=== PATIENT | female | born 1930 | race Caucasian/White ===

== ENCOUNTER 2017-10-21 15:24 | Inpatient (IN) | payer OTHER ==
[~2017-10-21] VITALS: Ht 170.2 cm; Wt 68.5 kg
--- NOTE | 2017-10-21 15:24 | NUR ---
PT TAKEN BY [facility] FROM [facility]ARKING LOT TO ER BED 10
[2017-10-21 15:33] VITALS: BP 206/77
--- NOTE | 2017-10-21 15:33 | NUR ---
87 YO FEMALE BIB PRIVATE AUTO ASSISTED TO [facility] IN PARKING LOT NO PULSE AGONAL RESPIRATIONS TAKEN TO BED 10 MD AT BEDSIDE PATIENT INTUBATED ON ARRIVAL. SKIN IS PALE AND CLAMMY UPON ARRIVAL.HOOKED TO BEDSIDE MONITOR SHOWS HR 153,BP 206/77.
[2017-10-21] MEDS ORDERED: MORPHINE SULFATE 2 MG/ML SYR IVP ONE (15:55)
[2017-10-21] MEDS ORDERED: LORazepam 2 MG/ML VIAL IVP ONE (15:55)
--- NOTE | 2017-10-21 15:58 | NUR ---
PT IS MORE AWAKE AT THIS TIME, TRIED TO PULL OUT TUBES, NOTIFIED MD AND ORIENTED PT.
--- NOTE | 2017-10-21 16:00 | NUR ---
CALVIN CATH INSERTED, CLEAR YELLOW URINE NOTED.
[2017-10-21] MEDS ORDERED: PROPOFOL 200 MG/20 ML VIAL IV ONE (16:10)
--- NOTE | 2017-10-21 16:10 | NUR ---
NOTIFIED MD BEDSIDE MONITOR SHOWS ABNORMAL EKG.
[2017-10-21] MEDS ORDERED: NACL 0.9% 1,000 ML IV ONE ×2 (16:20→17:15)
[2017-10-21] MEDS ORDERED: PROPOFOL 1000 MG/100 ML PREMIX 0 ML IV ONE (16:23)
--- NOTE | 2017-10-21 16:28 | NUR ---
1L NS BOLUS STARED.
--- NOTE | 2017-10-21 17:00 | NUR ---
PT'S DAUGHTER AT BEDSIDE HAD CONVERSATION WITH MD.
--- NOTE | 2017-10-21 17:11 | NUR ---
ABG RESULTS GIVEN TO . PHYSICIAN REQUESTS NEW VENT SETTINGS AC20 ,VT 450, PEEP 5 AND FIO2 40%. VENT ALARMS REMAIN ON AND FUNCTIONING. ETT REMAINS SECURE WITH A PATENT AIRWAY.
[2017-10-21] MEDS ORDERED: PIPERACILLIN/TAZOBACTAM 3.375 GM in DEXTROSE 5% 50 ML IV ONE (17:15)
[2017-10-21] MEDS ORDERED: DEXAMETHASONE 10 MG/ML VIAL IVP ONE (17:15)
[2017-10-21] MEDS ORDERED: SODIUM BICARBONATE 8.4% PFS 50 MEQ/50 ML SYR IVP ONE (17:15)
[2017-10-21 17:20] LABS: ALBUMIN 3.6 g/dL (3.4-5.0); ANION GAP 20.2 (8-16); ASPARTATE AMINOTRANSFERASE 164 U/L (15-37); CARBON DIOXIDE 24.7 mmol/L (21-32); CHLORIDE 96 mmol/L (98-107); CREATININE 1.8 mg/dL (0.6-1.3); GLUCOSE 208 mg/dL (74-106); POTASSIUM 4.9 mmol/L (3.5-5.1); SODIUM SERUM 136 mmol/L (136-145); TOTAL BILIRUBIN 0.4 mg/dL (0.0-1.0); UREA NITROGEN, BLOOD 25 mg/dL (7-18)
[2017-10-21 17:39] LABS: MAGNESIUM 2.1 mg/dL (1.8-2.4)
[2017-10-21 17:42] LABS: ACETONE, SERUM NEGATIVE (NEGATIVE)
[2017-10-21 17:45] LABS: HEMATOCRIT 42.8 % (36-48); HEMOGLOBIN 13.3 g/dL (12.0-16.0); MEAN CORPUSCULAR HEMOGLOBIN 28 pg (27-31); MEAN CORPUSCULAR HGB CONC 31 g/dL (33-37); MEAN CORPUSCULAR VOLUME 89.9 fL (80-94); PLATELET COUNT (AUTO) 386 K/uL (140-450); RED BLOOD CELL COUNT(AUTO) 4.76 MIL/uL (4.20-5.40); RED CELL DISTRIBUTION WIDTH 13.7 % (11.6-13.7)
[2017-10-21] MEDS ORDERED: PIPERACILLIN/TAZOBACTAM 3.375 GM VIAL IV ONE ×2 (17:48→20:56)
[2017-10-21] MEDS ORDERED: FLUT1POW3 IH (17:53)
[2017-10-21] MEDS ORDERED: GABA100C PO (17:54)
[2017-10-21] MEDS ORDERED: OXYC20TA PO (17:54)
[2017-10-21] MEDS ORDERED: UMEC62.5 IH (17:54)
[2017-10-21] MEDS ORDERED: POTA8TER12 PO (17:56)
[2017-10-21] MEDS ORDERED: FURO-570 PO (17:56)
[2017-10-21] MEDS ORDERED: METO25TA PO (17:56)
[2017-10-21] MEDS ORDERED: ATOR40TA PO (17:56)
[2017-10-21 17:58] LABS: EOSINOPHILS % (MANUAL) 1 % (0-4); LYMPHOCYTES % (MANUAL) 10 % (20-46); MONOCYTES % (MANUAL) 4 % (5-12)
--- NOTE | 2017-10-21 18:00 | NUR ---
PT IS MORE AWAKE, REORIENTED PT. PT'S DAUGHTER AT BEDSIDE.
[2017-10-21] MEDS ORDERED: ASPI81CT89 PO (18:07)
[2017-10-21] MEDS ORDERED: VIT1CAPS9 PO (18:07)
[2017-10-21] MEDS ORDERED: BEN50 PO (18:07)
[2017-10-21] MEDS ORDERED: DOCU-299 PO (18:07)
[2017-10-21] MEDS ORDERED: FLAX10002 PO (18:07)
[2017-10-21] MEDS ORDERED: VITB12 PO (18:07)
[2017-10-21] MEDS ORDERED: PROPOFOL 1000 MG/100 ML PREMIX 100 ML IV PRN (18:35)
[2017-10-21] MEDS ORDERED: NACL 0.9% 1,000 ML IV SCH (18:39)
[2017-10-21] MEDS ORDERED: ONDANSETRON 4 MG/2 ML VIAL IM/IVP PRN (18:40)
[2017-10-21] MEDS ORDERED: DOCUSATE SODIUM 100 MG GELCAP PO PRN (18:40)
[2017-10-21] MEDS ORDERED: ACETAMINOPHEN 325 MG TAB PO PRN (18:40)
[2017-10-21] MEDS ORDERED: NITROGLYCERIN 0.4 MG TAB SL ONE (19:00)
--- NOTE | 2017-10-21 19:00 | NUR ---
TRANSFERRED PT TO ICU BED5 VIA GURNEY ACCOMAPNIED WITH RT, RN AND TECH. BEDSIDE REPORT GIVEN TO ROCCO OCAMPO, PT IS MORE AWAKE, ALERT, ABLE TO FOLLWO SIMPLE COMMANDS. BP 110/83, HR 78, O2 SATS 94 % UPON ARRIVAL TO ICU.
--- NOTE | 2017-10-21 19:00 | NUR ---
PT BIBG FROM ER. S/P CARDIAC ARREST. AFEBRILE. AAO X 3. RESPONDS TO VERBAL AND TACTILE STIMULI. ETT TO VENT FIO2 40 VT 450 RATE 20 FLOW 50 PEEP 5. LUNG SOUNDS DIMINISHED BILATERALLY. SR ON MONITOR. NO EDEMA NOTED. IV SITE L HAND 18G. BOWEL SOUNDS HYPOACTIVE. 1 SMALL BM AT THIS TIME. F/C PATENT. REDNESS NOTED SACRAL COCCYX. NO SIGNS OF ACUTE DISTRESS AT THIS TIME. SIDE RAILS UP X4. BED IN LOWEST POSITION. WILL CONTINUE TO MONITOR.
--- NOTE | 2017-10-21 19:20 | NUR ---
late entry : PT started 0.9 NS at 1600 and ended at 1705. Zosyn started at 1745 and ended at 1815. the second bag of 0.9 NS started at 1720 @ 100 mls/hr and it was still transfusing after PT transferred to ICU, about 800 mls fluid left in the bag.
[2017-10-21 19:25] VITALS: BP 118/63
[2017-10-21 20:01] VITALS: BP 110/83
[2017-10-21] MEDS ORDERED: HEPARIN PER PHARMACY MC PRN (20:20)
[2017-10-21] MEDS ORDERED: hePARIN / DEXT 5% PREMIX 250 ML IV SCH (20:20)
[2017-10-21 20:24] LABS: APPEARANCE,URINE SL CLOUDY (CLEAR); BILIRUBIN,URINE NEGATIVE (NEGATIVE); BLOOD, URINE 1+ (NEGATIVE); COLOR,URINE YELLOW (YELLOW); LEUKOCYTE ESTERASE ,URINE TRACE (NEGATIVE); NITRITE, URINE NEGATIVE (NEGATIVE); UGLUCOSE NEGATIVE (NEGATIVE)
--- NOTE | 2017-10-21 20:31 | NUR ---
LARGE BM AT THIS TIME. STOOL SAMPLE COLLECTED AND SENT FOR OCCULT BLOOD.
[2017-10-21] MEDS ORDERED: METOPROLOL SUCCINATE 50 MG TABER PO SCH (21:00)
[2017-10-21] MEDS: CARVEDILOL 3.125 MG TAB PO SCH (21:00)
--- NOTE | 2017-10-21 21:24 | NUR ---
ULTRASOUND AT BEDSIDE AT THIS TIME
[2017-10-21 21:25] VITALS: BP 102/68
[2017-10-21 21:47] LABS: PROTHROMBIN TIME 9.9 secs (10.8-13.4)
[2017-10-21 21:54] LABS: RBC,URINE 0-5 (RARE) /HPF (0-5)
[2017-10-21 21:55] LABS: FINE GRANULAR CASTS,URINE 0-10 /LPF (None Seen)
[2017-10-21 22:00] VITALS: BP 135/82
[2017-10-21] MEDS ORDERED: LORazepam 2 MG/ML VIAL IVP SCH (22:00)
[2017-10-21] MEDS ORDERED: HYDROmorphone 1 MG/ML AMP IVP SCH (22:00)
[2017-10-21] MEDS: DEXT 5% / NACL 0.45% 1,000 ML IV SCH (22:05)
--- NOTE | 2017-10-21 22:15 | NUR ---
INSERTED NGT TO L NARES
[2017-10-21] MEDS ORDERED: DEXTROSE 50% 50 ML SYR IVP PRN (22:25)
[2017-10-21] MEDS ORDERED: DOXYCYCLINE 100 MG in DEXTROSE 5% 100 ML IV SCH (23:00)
[2017-10-21] MEDS ORDERED: MIDAZOLAM 2 MG/2 ML VIAL IV SCH (23:00)
[2017-10-21 23:25] VITALS: BP 110/68
[2017-10-22] VITALS (91 sets, daily range): BP systolic 98–173; BP diastolic 38–100
[2017-10-22] MEDS ORDERED: methylPREDNISolone SS 40 MG in WATER STERILE 1 ML IV SCH ×2
--- NOTE | 2017-10-22 00:12 | NUR ---
LAB AT BEDSIDE FOR BLOOD DRAW
[2017-10-22] MEDS: methylPREDNISolone SS 40 MG/ML VIAL IVP SCH ×3 (00:26→09:56)
[2017-10-22] MEDS: PIPER/TAZO 2.25GM/D5W PREMIX 50 ML IV SCH ×5 (00:26→23:13)
[2017-10-22 00:34] LABS: CHOL/HDL RATIO 1.8 (1-4.5); FREE T4 (FREE THYROXINE) 1.21 ng/dL (0.76-1.46); PHOSPHORUS 3.3 mg/dL (2.5-4.9); THYROID STIMULATING HORMONE 0.29 uIU/mL (0.34-3.74)
--- NOTE | 2017-10-22 00:40 | NUR ---
CRITICAL LAB VALUE TROPONIN 0.268 REPORTED TO
[2017-10-22] MEDS ORDERED: GABAPENTIN 100 MG CAP PO PRN (00:50)
--- NOTE | 2017-10-22 02:00 | NUR ---
IV INSERTED TO LEFT FA. PT ON PROPOFOL 5MCG. WILL CONTINUE TO MONITOR.
[2017-10-22] MEDS: PROPOFOL 1000 MG/100 ML PREMIX 100 ML IV PRN ×4 (02:13→17:59)
[2017-10-22] MEDS: ZOLPIDEM 5 MG TAB PO PRN (02:18)
--- NOTE | 2017-10-22 03:00 | NUR ---
PT UNABLE TO GO TO CT SCAN D/T RESTLESSNESS. PROPOFOL INCREASED TO 30 MCG/KG/MIN, WILL CONTINUE TO MONITOR.
--- NOTE | 2017-10-22 03:55 | NUR ---
ATIVAN GIVEN 1MG FOR RESTLESSNESS
[2017-10-22] MEDS ORDERED: LORazepam 2 MG/ML VIAL IVP SCH (04:00)
[2017-10-22] MEDS ORDERED: MIDAZOLAM MDV 50 MG in NACL 0.9% 40 ML IV PRN (05:05)
--- NOTE | 2017-10-22 05:20 | NUR ---
CT SCAN REFUSED BY US D/T RESTLESSNESS. DR. BARTLETT MADE AWARE. PROPOFOL INCREASED TO 50MCG/KG/MIN
[2017-10-22 06:32] LABS: BASOPHILS % (AUTO) 0.1 % (0.0-2.0); HEMOGLOBIN 10.8 g/dL (12.0-16.0); LYMPHOCYTES # (AUTO) 0.5 K/uL (2.5-16.5); LYMPHOCYTES % (AUTO) 2.9 % (20.5-51.1); MEAN CORPUSCULAR HEMOGLOBIN 28 pg (27-31); MEAN CORPUSCULAR HGB CONC 32 g/dL (33-37); MEAN CORPUSCULAR VOLUME 88.4 fL (80-94); MONOCYTES # (AUTO) 0.2 K/uL (0.8-1.0); MONOCYTES % (AUTO) 1.3 % (1.7-9.3); NEUTROPHILS # (AUTO) 16.7 K/uL (1.8-7.7); NEUTROPHILS % (AUTO) 95.7 % (42.2-75.2); PLATELET COUNT (AUTO) 260 K/uL (140-450); RED BLOOD CELL COUNT(AUTO) 3.85 MIL/uL (4.20-5.40); WHITE BLOOD COUNT (AUTO) 17.5 K/uL (4.8-10.8)
[2017-10-22] MEDS: BLOOD GLUCOSE MONITORING 1 DEV DEV FS SCH ×4 (06:48→20:09)
[2017-10-22 06:49] LABS: ANION GAP 12.7 (8-16); CARBON DIOXIDE 30.6 mmol/L (21-32); CHLORIDE 103 mmol/L (98-107); CREATININE 1.3 mg/dL (0.6-1.3); GLUCOSE 183 mg/dL (74-106); POTASSIUM 4.3 mmol/L (3.5-5.1); SODIUM SERUM 142 mmol/L (136-145); UREA NITROGEN, BLOOD 25 mg/dL (7-18)
--- NOTE | 2017-10-22 07:10 | NUR ---
ENDORSED CARE TO INCOMING SHIFT. NO SIGNS OF ACUTE DISTRESS AT THIS TIME. PT IN STABLE CONDITION. BED IN LOWEST POSITION.
--- NOTE | 2017-10-22 07:30 | NUR ---
REPORT RECEIVED FROM NIGHT NURSE. PT IS SEDATED. AROUSABLE TO TOUCH. PEERL, AFEBRILE. FLACC 0. SINUS RHYTHM ON MONITOR. PT IS ETT TO VENT WITH SETTINGS: AC 18, FIO2 80%, VT 450, PEEP 5. LUNGS SOUND CLEAR, DIMINISHED LOWER LOBES. BREATHING EVEN AND UNLABORED. NO SOB NOTED AT THIS TIME. NGT IN PLACE TO LEFT NARE, PLACEMENT CONFIRMED. ABD SOFT, NONTENDER, NONDISTENDED WITH ACTIVE BOWEL SOUNDS. PT ISNPO EXCEPT MEDS AT THIS TIME. PERIPHERAL IVS G20 TO LEFT FOREARM AND G18 TO LEFT HAND ASYMPTOMATIC, PATENT AND INTACT, PT IS ON PROPOFOL DRIP AT 50 MCG/KG/MIN AND IV FLUID D51/2NS AT 70 ML/HR. CALVIN CATH IN PLACE DRAINING URINE TO GRAVITY DRAINAGE BAG. SKIN IS DRY AND WARM TO TOUCH. NO SIGNS OF ACUTE DISTRESS NOTED AT THIS TIME. BED IN LOWEST POSITION AND CALL LIGHT WITHIN REACH. WILL CONTINUE TO MONITOR.
--- NOTE | 2017-10-22 07:30 | NUR ---
RECEIVED REPORT FROM NIGHT NURSE. PT IS SEDATED. AROUSABLE TO TACTILE STIMULI. PEERL, FLACC 0, AFEBRILE. NORMAL SINUS RHYTHM ON MONITOR. PT IS ETT TO VENT WITH SETTINGS: AC 18, FIO2 40%, VT 450, PEEP 5. BREATHING EVEN AND UNLABORED. NO SIGNS OF SOB NOTED. LUNGS SOUND CLEAR, DIMINISHED LOWER LOBES BILATERALLY. ABD SOFT, NONDISTENDED, NONTENDER W/ ACTIVE BOWEL SOUNDS. NGT IN PLACE TO LEFT NARE, PLACEMENT CONFIRMED. PERIPHERAL IVS G20 TO LEFT FOREARM AND G18 TO LEFT HAND PATENT AND INTACT, PT IS ON PROPOFOL DRIP AT 50 MCG/KG/MIN AND IV FLUID D51/2NS AT 70 ML/HR. CALVIN CATH IN PLACE DRAINING CLEAR URINE. SKIN IS INTACT, DIAPHORETIC AND WARM TO TOUCH. NO SIGNS OF ACUTE DISTRESS NOTED AT THIS TIME. HOB AT 30 DEGREES. BED IN LOWEST POSITION, CALL LIGHT WITHIN REACH. WILL CONTINUE TO MONITOR.
--- NOTE | 2017-10-22 07:34 | NUR ---
RECEIVED INTUBATED PT WITH A 7.5 ETT SECURED @21 TEETH/GUMS ON VENT. SETTINGS AC 20 VT 450, PEEP 5 AND FIO2 40%. PT SUCTIONED OBTAINED SMALL AMOUNT OF BLOOD TINGED SECRETIONS, AIRWAY IS PATENT AND ETT IS SECURE. PT IS TACHYPNEIC AND SLIGHTLY RESTLESS AT THIS TIME. VENT ALARMS ARE ON AND FUNCTIONING. WILL CONTINUE TO MONITOR.
--- NOTE | 2017-10-22 08:30 | NUR ---
DR. SILVER IN TO SEE AND EXAMINE PT. WILL FOLLOW UP ON ORDERS.
[2017-10-22] MEDS ORDERED: DOXYCYCLINE 100 MG in DEXTROSE 5% 100 ML IV SCH (09:00)
[2017-10-22] MEDS ORDERED: ATORVASTATIN 20 MG TAB PO SCH (09:00)
--- NOTE | 2017-10-22 09:45 | NUR ---
BACK FROM RADIOLOGY AFTER CT OF HEAD AND CHEST TAKEN. PT TOLERATED WELL. VSS.
--- NOTE | 2017-10-22 09:45 | NUR ---
PT MANUALLY VENTILATED BACK TO ICU FROM CT WITHOUT INCIDENT. PT PLACED BACK ON VENT WITH DOCUMENTED VENT SETTINGS. PT REMAINS TACHYPNEIC AT THIS TIME. SPO2 97%. VENT ALARMS ON AND FUNCTIONING. WILL CONTINUE TO MONITOR.
[2017-10-22] MEDS: LACTOBACILLUS RHAMNOSUS GG 1 EACH CAP PO SCH (09:56)
[2017-10-22] MEDS: ASPIRIN 81 MG TAB.CHEW PO SCH (09:56)
[2017-10-22] MEDS: LISINOPRIL 5 MG TAB PO SCH (09:56)
[2017-10-22] MEDS: CARVEDILOL 3.125 MG TAB PO SCH ×2 (09:57→20:09)
[2017-10-22] MEDS: FUROSEMIDE 40 MG TAB PO SCH (09:58)
[2017-10-22] MEDS: ATORVASTATIN 20 MG TAB PO SCH (09:58)
[2017-10-22] MEDS: DOXYCYCLINE 100 MG in DEXTROSE 5% 100 ML IV SCH ×2 (10:01→20:09)
--- NOTE | 2017-10-22 10:55 | NUR ---
CALLED RADIOLOGY TO FOLLOW UP WITH VQ SCAN. PER EM FROM RADIOLOGY, THEY ARE TRYING TO REACH A CLIENT COORDINATOR. WILL FOLLOW UP AGAIN.
--- NOTE | 2017-10-22 11:00 | NUR ---
RECEIVED A CALL FROM PHARMACY AND SPOKE WITH DR. MOELLER REGARDING VERIFICATION OF HEPARIN AND GABAPENTIN ORDERS. WILL FOLLOW UP.
--- NOTE | 2017-10-22 11:10 | NUR ---
PT'S DAUGHTER ALEYDA AT BEDSIDE AND UPDATES GIVEN ON PT'S CONDITION.
--- NOTE | 2017-10-22 11:29 | NUR ---
RECEIVED A CALL FROM PT'S SON, LILIYA. UPDATES GIVEN ON PT'S CONDITION.
--- NOTE | 2017-10-22 11:45 | NUR ---
ECHOCARDIOGRAM BEING DONE AT BEDSIDE. VITAL SIGNS STABLE.
--- NOTE | 2017-10-22 11:56 | NUR ---
VENT CHECK COMPLETED. MORTGAGE PROFESSIONAL BEDSIDE COMPLETING PROCEDURE. DAUGHTER ALSO BEDSIDE. WILL CONTINUE TO MONITOR.
[2017-10-22] MEDS: DEXT 5% / NACL 0.45% 1,000 ML IV SCH ×2 (12:23→17:13)
--- NOTE | 2017-10-22 12:30 | NUR ---
ECHOCARDIOGRAM COMPLETED
--- NOTE | 2017-10-22 12:36 | NUR ---
ECHOCARDIOGRAM COMPLETED. PT TOLERATED WELL.
--- NOTE | 2017-10-22 13:30 | NUR ---
VQ SCAN BEING DONE AT BEDSIDE. NO ACUTE DISTRESS NOTED AT THIS TIME. WILL CONTINUE TO MONITOR.
--- NOTE | 2017-10-22 13:57 | NUR ---
RESIDENT PHYSICIAN DR. MEDELLIN IN TO SEE PT. WILL FOLLOW UP ON ORDERS.
--- NOTE | 2017-10-22 14:30 | NUR ---
VQ SCAN DONE. NO SIGNS OF ACUTE DISTRESS NOTED AT THIS TIME. VITAL SIGNS STABLE.
[2017-10-22] MEDS ORDERED: hePARIN / DEXT 5% PREMIX 250 ML IV SCH ×3 (14:35→21:20)
[2017-10-22] MEDS ORDERED: HEPARIN PER PHARMACY MC PRN ×2 (14:35)
--- NOTE | 2017-10-22 14:59 | NUR ---
PHARMACIST CALLED TO VERIFY HEPARIN DRIP ORDER DUE TO DECREASE IN H&H AND PLATELET LEVELS IN ONE DAY. RESIDENT PHYSICIAN DR. MOELLER MADE AWARE. WILL FOLLOW UP WITH NEW ORDERS.
--- NOTE | 2017-10-22 15:23 | NUR ---
DR. GELLER Y. IN TO SEE AND EXAMINE PT, AND MADE AWARE OF DECREASE IN H&H AND PLATELET VALUES AND VERIFIED HEPARIN ORDER. PER DR. GELLER, PT IS OK TO RECEIVE HEPARIN. WILL FOLLOW UP.
--- NOTE | 2017-10-22 15:45 | NUR ---
PT TEMP 98.9 WHEN RECHECKED AFTER TYLENOL AND ICE BATH. WILL CONTINUE TO MONITOR. Addendum: 10/22/17 at 1556 by Kylie Aj RN WRONG PATIENT CHARTING.
--- NOTE | 2017-10-22 15:45 | NUR ---
PT PLACED ON CPAP 5 PS 10 FIO2 40%. FAMILY IS BEDSIDE. NURSE MOORE IS AWARE.
--- NOTE | 2017-10-22 15:55 | NUR ---
PT'S DAUGHTER, ALEYDA AND SON, ALBERTO WANT TO KEEP PT'S RING ON HER FINGER. EXPLAINED HOSPITAL POLICY FOR PERSONAL BELONGINGS AND BOTH SON AND DAUGHTER VERBALIZED UNDERSTANDING.
--- NOTE | 2017-10-22 16:23 | NUR ---
PT RETURNED TO AC MODE FROM CPAP TRIAL DUE TO INCREASED WOB AND TACHYPNEA. PT DOES NOT OPEN HER EYE AND IS NOT ABLE TO FOLLOW SIMPLE COMMANDS. NURSE MOORE IS BEDSIDE AND AWARE.
--- NOTE | 2017-10-22 16:55 | NUR ---
PT , ROBERT HUGHES, CALLED FOR UPDATE. EXPLAINED THAT PATIENT NEEDS TO BE TRANSFERRED [facility] CATH PLACEMENT. SHE ALSO CONSENTED FOR EGD AND COLONOSCOPY. INFORMED CONSENT RECEIVED VIA TWO NURSES MYSELF AND TOM. WILL FOLLOW UP WITH WHEN PT HAS TRANSFER PLAN. Addendum: 10/22/17 at 1810 by Kylie jA RN WRONG PATIENT
--- NOTE | 2017-10-22 17:19 | NUR ---
PT REMAINS ON VENT SETTINGS AC 20, VT 450, PEEP 5 AND FIO2 40%. PT IS SLIGHTLY IRRITABLE MOVING HANDS AROUND. VENT ALARMS REMAIN ON AND FUNCTIONING. ETT REMAINS SECURE WITH A PATENT AIRWAY.
--- NOTE | 2017-10-22 17:45 | NUR ---
BED BATH GIVEN AND REPOSITIONED PT. TOLERATED WELL. PT WAS ABLE TO OPEN EYES AND FOLLOW SIMPLE COMMANDS.
--- NOTE | 2017-10-22 18:23 | NUR ---
ULTRASOUND FOR LOWER EXTREMITIES COMPLETED. PT TOLERATED WELL.
--- NOTE | 2017-10-22 18:24 | NUR ---
DR. BARTLETT IN TO SEE AND EXAMINE PT. UPDATES GIVEN ON PT'S CONDITION. WILL FOLLOW UP ON ORDERS.
--- NOTE | 2017-10-22 19:15 | NUR ---
RECEIVED REPORT FROM MORNING RN FOR CONTINUITY OF CARE. VS STABLE AT THIS TIME. PT OPENS EYES. ABLE TO MAKE NEEDS KNOWN THROUGH NODDING HER HEAD. ABLE TO FOLLOW SIMPLE COMMAND. RASS -1. PERRL. SINUS ARRHYTHMIA WITH PAC ON MONITOR. PULSES PALPABLE IN ALL EXTREMITIES. ETT TO VENT WITH SETTINGS: AC18, FIO2 40%, TV450 AND PEEP 5. NO SIGNS OF RESPIRATORY DISTRESS NOTED. NGT IN PLACE. NO RESIDUAL NOTED AT THIS TIME. PLACEMENT CHECKED. PT HAS CALVIN CATHETER IN PLACE DRAINING VIRI COLORED URINE. NO BM NOTED THIS TIME. PT HAS PERIPHERAL IV ACCESS ON LEFT AC 22G AND RIGHT HAND 20G. RECEIVED PT ON HEPARIN DRIP AT 910 UNITS/HR, PROPOFOL AT 10MCG, AND D5W 0.45% NS AT 70ML/HR. HOB AT 30 DEGREES. ALL SAFETY PRECAUTIONS ARE IN PLACE. CALL LIGHT WITHIN REACH. WILL CONTINUE TO MONITOR PT.
--- NOTE | 2017-10-22 19:27 | NUR ---
REPORT GIVEN FOR NIGHT NURSE FOR CONTINUITY OF CARE. PT IS IN STABLE CONDITION.
[2017-10-22] MEDS: INSULIN LISPRO SLIDING SCALE 100 UNITS/ML VIAL SUBQ PRN (20:09)
--- NOTE | 2017-10-22 21:05 | NUR ---
PT ATTEMPTING TO SIT UP AND DANGLES HER LEGS OF BED. REORIENT PT AND WILL CONTINUE TO KEEP MONITORING HER. VS STABLE AT THIS TIME. BED AT LOW POSSIBLE POSITION. ALL SAFETY PRECAUTIONS ARE IN PLACE. WILL CONTINUE TO MONITOR PT.
--- NOTE | 2017-10-22 21:18 | NUR ---
SPOKE TO THE PHARMACIST, DANIEL REGARDING HEPARIN DRIP DOSAGE. SHE SAID THAT IF HEPARIN DRIP IS FOR [facility], SHE WILL UPDATE THE HEPARIN DRIP DOSAGE TO ACS PROTOCOL. DR. BARTLETT NOTIFIED, AND SAID OK TO CHANGE HEPARIN DRIP DOSAGE TO [facility] PROTOCOL. WILL CONTINUE TO MONITOR.
--- NOTE | 2017-10-22 23:00 | NUR ---
PT AWAKE AT THIS TIME. VS STABLE. SR ON MONITOR ON MONITOR. ALL SAFETY PRECAUTIONS ARE IN PLACE. WILL CONTINUE TO MONITOR PT.
--- NOTE | 2017-10-22 23:45 | NUR ---
PT ASLEEP AT THIS TIME. ORAL CARE PROVIDED. RASS -1 AT THIS TIME. PT DOES NOT APPEAR TO BE IN ANY SIGNS OF DISTRESS. ALL SAFETY PRECAUTIONS ARE IN PLACE. BED AT LOW POSSIBLE POSITION. WILL CONTINUE TO MONITOR PT.
--- NOTE | 2017-10-22 23:52 | NUR ---
SPOKE WITH DR. BARTLETT REGARDING TROPONIN, ACCORDING TO HER NEXT ONE WILL BE TOMORROW AT 0600.
[2017-10-23] VITALS (103 sets, daily range): BP systolic 119–183; BP diastolic 52–102
--- NOTE | 2017-10-23 00:45 | NUR ---
PT NOTED TO HAVE PVCs. NO SIGNS OF DISTRESS NOTED. DR. BRODERICK NOTIFIED WITH ORDERS MADE. WILL CONTINUE TO MONITOR.
[2017-10-23] MEDS: ENOXAPARIN 30 MG/0.3 ML SYR SUBQ SCH (01:00)
--- NOTE | 2017-10-23 01:11 | NUR ---
DR. BRODERICK NOTIFIED OF EKG RESULT. NO ORDERS MADE. WILL CONTINUE TO MONITOR.
--- NOTE | 2017-10-23 01:48 | NUR ---
VS STABLE AT THIS TIME. PT ASLEEP. NO CHANGE IN CONDITION AT THIS TIME. PT HAS NOT ATTEMPTED TO SIT UP NOR DANGLE FEET OFF BED AT THIS TIME. HOB AT 30 DEGREES. ALL SAFETY PRECAUTIONS ARE IN PLACE. WILL CONTINUE TO MONITOR PT.
[2017-10-23] MEDS: PROPOFOL 1000 MG/100 ML PREMIX 100 ML IV PRN ×3 (01:52→22:55)
--- NOTE | 2017-10-23 03:50 | NUR ---
PT ASLEEP AT THIS TIME. RASS -1 AT THIS TIME. KEPT HOB AT 30 DEGREES. BED AT LOW POSSIBLE POSITION AT THIS TIME. ALL SAFETY PRECAUTIONS ARE IN PLACE. NO CHANGE IN CONDITION AT THIS TIME. CALVIN CATHETER STILL DRAINING VIRI URINE. WILL CONTINUE TO MONITOR PT.
--- NOTE | 2017-10-23 04:59 | NUR ---
MORNING CARE PROVIDED TO PT. NO BM NOTED AT THIS TIME. NO FURTHER SKIN BREAKDOWN NOTED. ORAL CARE AND CALVIN CATHETER CARE PROVIDED. ALL SAFETY PRECAUTIONS ARE IN PLACE. HOB AT 30 DEGREES. WILL CONTINUE TO MONITOR PT.
[2017-10-23] MEDS: PIPER/TAZO 2.25GM/D5W PREMIX 50 ML IV SCH ×3 (05:01→17:01)
[2017-10-23 05:09] LABS: BASOPHILS % (AUTO) 0.4 % (0.0-2.0); EOSINOPHILS % (AUTO) 0.1 % (0.0-4.0); HEMOGLOBIN 10.4 g/dL (12.0-16.0); LYMPHOCYTES % (AUTO) 5.1 % (20.5-51.1); MEAN CORPUSCULAR HEMOGLOBIN 29 pg (27-31); MEAN CORPUSCULAR HGB CONC 32 g/dL (33-37); MEAN CORPUSCULAR VOLUME 87.9 fL (80-94); MONOCYTES % (AUTO) 4.7 % (1.7-9.3); NEUTROPHILS % (AUTO) 89.7 % (42.2-75.2); PLATELET COUNT (AUTO) 225 K/uL (140-450); RED BLOOD CELL COUNT(AUTO) 3.64 MIL/uL (4.20-5.40); RED CELL DISTRIBUTION WIDTH 14.1 % (11.6-13.7)
[2017-10-23 05:10] LABS: BASOPHILS # (AUTO) 0.1 K/uL (0.00-0.22); MONOCYTES # (AUTO) 0.9 K/uL (0.8-1.0); NEUTROPHILS # (AUTO) 17.9 K/uL (1.8-7.7)
[2017-10-23 05:39] LABS: MAGNESIUM 1.7 mg/dL (1.8-2.4); PHOSPHORUS 3.7 mg/dL (2.5-4.9)
[2017-10-23 05:40] LABS: ANION GAP 11.1 (8-16); CARBON DIOXIDE 31.4 mmol/L (21-32); CHLORIDE 102 mmol/L (98-107); CREATININE 1.2 mg/dL (0.6-1.3); GLUCOSE 134 mg/dL (74-106); POTASSIUM 3.5 mmol/L (3.5-5.1); SODIUM SERUM 141 mmol/L (136-145)
--- NOTE | 2017-10-23 06:25 | NUR ---
VS STABLE AT THIS TIME. PT ASLEEP. NO CHANGE IN CONDITION. RECEIVED CRITICAL TROPONIN AND REPORTED TO MD. BED AT LOW POSSIBLE POSITION AT THIS TIME. HOB AT 30 DEGREES. ALL SAFETY PRECAUTIONS IN PLACE. WILL CONTINUE TO MONITOR PT.
[2017-10-23] MEDS: BLOOD GLUCOSE MONITORING 1 DEV DEV FS SCH ×4 (06:28→20:34)
[2017-10-23 06:30] LABS: UREA NITROGEN, BLOOD 22 mg/dL (7-18)
[2017-10-23] MEDS ORDERED: MAG SULF 2000 MG/WATER PREMIX 50 ML IV SCH (07:00)
--- NOTE | 2017-10-23 07:10 | NUR ---
RECEIVED REPORT FROM NOC RN FOR CONTINUITY OF CARE. PATIENT IS AWAKE TO VOICE, ABLE TO FOLLOW SIMPLE COMMAND. SKIN WARM TO TOUCH, DRY AND FLAKY, TOENAILS ARE SLIGHTLY THICKENED, NO EDEMA, WITH FINE HAIR GROWTH AND +1 BILATERAL PEDAL PULSES. ON ETT TO VENT 7.5, 21 CM AT THE RIGHT LIP, 40%FIO2, AC 20, TV 450 AND PEEP 5. LEFT AC G 22 PERIPHERAL LINE PATENT AND INTACT TO D5 1/2 NS AT 70 ML/H, HEPARIN DRIP AT 780 U/HR AND PROPOFOL DRIP AT 25 MCG/H TO MAINTAIN -1 RASS. ON NPO EXCEPT MEDS WITH RIGHT NARES NGT. FC IN PLACE PATENT AND INTACT TO LIGHT YELLOW URINE IN MODERATE AMOUNT. BLANCHABLE REDNESS TO SACRALCOCCYX NOTED. SAFETY MEASURES IN PLACE. CALL LIGHT WITHIN REACH. WILL CONTINUE TO MONITOR PATIENT.
--- NOTE | 2017-10-23 07:20 | NUR ---
REPORT GIVEN TO MORNING RN FOR CONTINUITY OF CARE. ENDORSED THE PT BELONGINGS TO THE NEXT SHIFT. PT IN STABLE CONDITION AT THIS TIME.
[2017-10-23] MEDS ORDERED: LORazepam 2 MG/ML VIAL IVP SCH (07:30)
--- NOTE | 2017-10-23 07:37 | NUR ---
RCV'D PT INTUBATED WITH 7.5 ETT AT 21 CM MIDLINE. VENTILATOR SETTINGS CHARTED. VENT IS CONNECTED TO RED OUTLET. ALARMS AUDIBLE. AMBU BAG AT BEDSIDE. NO SOB OR DISTRESS NOTED. PER NURSE SHE STARTED VACATION SEDATION AT 0714 AND WILL LET ME KNOW WHEN PT IS READY TO START WEANING TRIAL. WILL CONTINUE TO MONITOR.
--- NOTE | 2017-10-23 08:00 | NUR ---
DR HUBER AND GROUP ROUNDING ON THE PATIENT. WILL FOLLOW UP WITH NEW ORDERS.
--- NOTE | 2017-10-23 08:03 | NUR ---
SEDATION VACATION STARTED. RT AT BEDSIDE.
--- NOTE | 2017-10-23 08:05 | NUR ---
STARTED PT ON WEANING TRAIL CPAP 5 PS 10. PT GOT AGITATED RR 30 AND GOT TIRED 5 MINUTES INTO TRIAL. PT BACK ON AC RN AWARE. WILL TRY WEANING TRIAL AGAIN. WILL CONTINUE TO MONITOR.
[2017-10-23] MEDS: DOXYCYCLINE 100 MG in DEXTROSE 5% 100 ML IV SCH ×2 (08:40→20:13)
[2017-10-23] MEDS: CARVEDILOL 3.125 MG TAB PO SCH (08:40)
[2017-10-23] MEDS: ASPIRIN 81 MG TAB.CHEW PO SCH (08:40)
[2017-10-23] MEDS: methylPREDNISolone SS 40 MG/ML VIAL IVP SCH (08:40)
[2017-10-23] MEDS: PANTOPRAZOLE 40 MG INJ VIAL IVP SCH (08:40)
[2017-10-23] MEDS: LACTOBACILLUS RHAMNOSUS GG 1 EACH CAP PO SCH (08:41)
[2017-10-23] MEDS: ATORVASTATIN 20 MG TAB PO SCH (08:41)
[2017-10-23] MEDS: LISINOPRIL 5 MG TAB PO SCH (08:41)
[2017-10-23] MEDS: FUROSEMIDE 40 MG TAB PO SCH (08:41)
[2017-10-23] MEDS ORDERED: LACTOBACILLUS RHAMNOSUS GG 1 EACH CAP PO SCH (09:00)
--- NOTE | 2017-10-23 09:10 | NUR ---
DR. SILVER IN SEEN AND EXAMINED PATIENT. UPDATED ON PATIENT'S CONDITION. WITH ORDERS TO D/C HEPARIN AND PATIENT WILL NOT NEED CENTRAL LINE IF PATIENT IS GOING TO BE EXTUBATED TODAY. DR SILVER PLACED PATIENT BACK ON CPAP. TOLERATING PROCEDURE WELL. RT AT BEDSIDE.
--- NOTE | 2017-10-23 09:12 | NUR ---
PT BACK ON CPAP. DR SILVER AT BEDSIDE AND DR CORREA. WILL CONTINUE TO MONITOR.
--- NOTE | 2017-10-23 10:30 | NUR ---
PT IS AGITATED AND RR IS 42. PLACED PT BACK ON AC MODE. PER DR TORRES PT HAS TO GET CENTRAL LINE DONE AND HAS TO BE BACK ON SEDATION. PT BACK ON AC MODE. PROPOFOL STARTED PER RN. WILL ENDORSE TO NEXT SHIFT FOR WEANING IN MORNING. WILL CONTINUE TO MONITOR.
--- NOTE | 2017-10-23 10:30 | NUR ---
RT AT BEDSIDE PLACING PATIENT BACK TO AC MODE, PATIENT RR AT 42
--- NOTE | 2017-10-23 10:56 | NUR ---
TIME OUT PERFORMED PRIOR TO CENTRAL LINE PLACEMENT. RESIDENT PHYSICIAN DR. TORRES AND DR. MEDELLIN AT BEDSIDE FOR PROCEDURE.
[2017-10-23] MEDS: DEXT 5% / NACL 0.45% 1,000 ML IV SCH (11:02)
[2017-10-23] MEDS ORDERED: PROBIOTIC SCREEN 1 EA MISC MC PRN (11:15)
--- NOTE | 2017-10-23 11:34 | NUR ---
PATIENT HAS BEEN SCREENED AND CATEGORIZED HIGH NUTRITION RISK. PATIENT WILL BE SEEN WITHIN 1-2 DAYS OF ADMISSION. 10/22/17 - 10/23/[address]
--- NOTE | 2017-10-23 15:08 | NUR ---
FAXED INITIAL REVIEW TO [facility] [phone] PHONE [facility] [phone]
--- NOTE | 2017-10-23 15:18 | NUR ---
10/23/17 RD INITIAL ASSESSMENT COMPLETED PLEASE REFER TO NUTRITION ASSESSMENT UNDER CARE ACTIVITY FOR ESTIMATED NUTRITIONAL NEEDS. 1. WHEN/IF PT MEDICALLY STABLE TO BEGIN NUTRTION, CONSIDER INITIATING CARDIAC DIET IN APPROPRIATE TEXTURES PER MARKETING SYSTEMS MANAGER RECOMMENDATIONS 2. IF PT REQUIRES NUTRITION SUPPORT, CONSIDER TF TOLERATED TO GLUCERNA @GOAL RATE 55 ML/H WITH 150ML H2O FLUSH Q4H. BEGIN TF AT 10ML/H AND INCREASE RATE BY 10ML Q6H. -THIS WILL PROVIDE 1584KCAL (97% ESTIMATED ENERGY NEEDS), 79 GM PRO (125% ESTIMATED PROTEIN NEEDS), AND 1663 ML FLUIDS (102% ESTIMATED FLUID NEEDS) 3. RD TO FOLLOW-UP 2-3 DAYS, HIGH RISK ANTONIO GREGORIO RD
[2017-10-23] MEDS: INSULIN LISPRO SLIDING SCALE 100 UNITS/ML VIAL SUBQ PRN (16:34)
--- NOTE | 2017-10-23 17:08 | NUR ---
PATIENT COMPLAINED OF PAIN TO THE RIGHT HIP. WILL ADMINISTER PRN MEDICATION
[2017-10-23] MEDS: HYDROcodone/APAP 7.5/325 MG 1 TAB PO PRN (17:11)
--- NOTE | 2017-10-23 18:02 | NUR ---
DR MEDELLIN MADE AWARE OF PATIENT'S BP ON 170'S. AWARE THAT PAIN MEDICATION WAS GIVEN EARLIER. WILL KEEP MONITORING PATIENT.
--- NOTE | 2017-10-23 19:10 | NUR ---
REPORT GIVEN TO NOC RN FOR CONTINUITY OF CARE. PATIENT IN STABLE CONDITION.
--- NOTE | 2017-10-23 19:25 | NUR ---
RECEIVED REPORT FROM MORNING SHIFT RN. PT IS INTUBATED BUT VERBAL AND ABLE TO MAKE NEEDS KNOWN. ET TUBE TO VENT AC VC FIO2=40, VT-450, RATE 20, FLOW 50L/MIN, PEEP = 5, PMAX=5. PT IS HYPERTENSIVE ON MONITOR, WITH SBP 170'S. LUNG SOUND DIMINISHED ON UPPER AND LOWER BILATERAL LOBES. NGT IN PLACE, GLUCERNA OF 10ML/HR. BOWEL SOUND HYPOACTIVE. RIGHT HAND 20 GAUGE INFUSING PROPOFOL AT 20MCG/MIN, D5 1/2 NS INFUSING AT 70ML/HR TO CENTRAL LINE (RIGHT IJ). CALVIN CATHETER IN PLACE, PATENT URINE IS CLEAR AND YELLOW. SKIN IS INTACT, PT WEARING MITS ON BILATERAL HANDS, WEARING RING ON LEFT HAND. FALL RISK PREVENTIONS MAINTAINED. HOB ELEVATED ABOVE 30 DEG, BED IN LOWEST POSITION. WILL CONTINUE TO MONITOR.
--- NOTE | 2017-10-23 19:30 | NUR ---
Received pt stable on vent support at documented settings, suctioned moderate amounts of thin white secretions, no resp distress or SOB noted at this time, pt awake and alert, 7.5 ETT secured at 21 cm at the teeth/gum, alarms set and audible, ambu bag at bedside, vent plugged into red outlet, pulse ox on, received report from day RT and RN of weaning trials earlier in the day and plans to wean again in the morning, will cont to monitor.
[2017-10-23] MEDS: CARVEDILOL 6.25 MG TAB PO SCH (20:11)
--- NOTE | 2017-10-23 21:05 | NUR ---
COREG ADMINISTERED BP IS CURRENTLY 153/60 HR=64. WILL CONTINUE TO MONITOR. PT IS ABLE TO MAKE NEEDS KNOWN.DENIES PAIN AT THIS TIME. VAP ORAL CARE PROVIDED AT BEDSIDE. PT REPOSITIONED AND PILLOW SUPPORT PROVIDED. SCDS ON BILATERAL LEGS. HOB ELEVATED ABOVE 30 DEG.
--- NOTE | 2017-10-23 21:22 | NUR ---
RT AT BEDSIDE, ADJUSTED FI02=35.
--- NOTE | 2017-10-23 21:40 | NUR ---
PT STILL AWAKE, ABLE TO MOVE UPPER AND LOWER EXTREMITY IN BED. PROPOFOL INCREASED FROM 7.8ML/HR TO 9.75ML/HR.
[2017-10-23] MEDS: ZOLPIDEM 5 MG TAB PO PRN (22:00)
--- NOTE | 2017-10-23 22:00 | NUR ---
PT IS AWAKE MOVING EXTREMITIES AND SLIDING DOWN IN BED. PRN AMBIEN ADMINISTERED.
[2017-10-23] MEDS: NACL 0.9% 1,000 ML IV SCH (22:12)
--- NOTE | 2017-10-23 22:55 | NUR ---
NEW IV TUBING AND PROPOFOL DRIP SET UP AT BEDSIDE.
--- NOTE | 2017-10-23 23:00 | NUR ---
RT AT BEDSIDE INCREASE FI02=37.
--- NOTE | 2017-10-23 23:15 | NUR ---
EMPITED CALVIN CATHETER: URINE IS NON-ODOROUS, CLEAR /YELLOW WITH OUTPUT OF 1250 ML. Addendum: 10/24/17 at 0411 by Kizzy Ford RN PT IS STILL AWAKE AND RESTLESS AT THIS TIME AFTER ATIVAN ADMINISTRATION.
--- NOTE | 2017-10-23 23:25 | NUR ---
INCREASE RATE OF TUBE FEEDING PER MD ORDER, NOW NGT FEEDING AT 30ML/HR WITH 150ML H20 FLUSH. WILL CONTINUE TO MONITOR FOR PATIENT TOLERANCE. GOAL FOR FEEDING IS 55ML/HR.
[2017-10-24] VITALS (53 sets, daily range): BP systolic 126–175; BP diastolic 52–90
[2017-10-24] MEDS: PIPER/TAZO 2.25GM/D5W PREMIX 50 ML IV SCH ×5 (00:04→23:00)
--- NOTE | 2017-10-24 00:24 | NUR ---
CONTACTED DR. GELLER REGARDING PT ELEVATED BP'S, RECEIVED TELEPHONE ORDER TO START NORVASC 10MG ONCE A DAY, STARTING NOW. WILL FOLLOW THROUGH WITH ORDER.
--- NOTE | 2017-10-24 00:32 | NUR ---
CONTACT AFTER HOURS PHARMACY ([facility]), INFORMED OF ORDER VIA DR. GELLER FOR NORVASC AND PENDING ENOXAPARIN FOR DVT PROPHYLAXIS.
[2017-10-24] MEDS ORDERED: amLODIPine 5 MG TAB PO SCH (00:35)
--- NOTE | 2017-10-24 00:42 | NUR ---
RECEIVED CALL BACK FROM PHARMACY STATING ENOXAPARIN ORDER WILL NOT GO THROUGH DUE TO HEPARIN DRIP ORDERS THAT HAVE NOT YET BEEN DISCONTINUED. WILL FOLLOW THROUGH AND D/C HEPARIN DRIP ORDERS.
--- NOTE | 2017-10-24 00:46 | NUR ---
CONTACTED DR. BARTLETT INFORMING NOTE FROM PHARMACY TO D/C HEPARIN DRIP THAT IS STILL IN E-MAR. CONFIRMED PT WILL START ON ENOXAPARIN AND WILL D/C HEPARIN ORDER.
--- NOTE | 2017-10-24 00:55 | NUR ---
INCREASE PROPOFOL DRIP TO 30MCG/MIN.
[2017-10-24] MEDS: HYDRAGUARD CREAM TP SCH ×2 (01:08→11:55)
--- NOTE | 2017-10-24 02:00 | NUR ---
PT RELAXED AND ASLEEP AT BEDSIDE.
--- NOTE | 2017-10-24 03:15 | NUR ---
RT AT BEDSIDE, ADJUSTED FIO2 = 40. Addendum: 10/24/17 at 0321 by Kizzy Ford RN KEEP O2 ABOVE 94%
[2017-10-24] MEDS: PROPOFOL 1000 MG/100 ML PREMIX 100 ML IV PRN (04:49)
--- NOTE | 2017-10-24 05:45 | NUR ---
VAP ORAL CARE PROVIDED, CATHETER CARE PROVIDED, PROVIDED FRESH LINENS AND REPOSITIONED PATIENT FOR COMFORT. BP IN 150'S. WILL CONTINUE TO MONITOR. URINE OUTPUT 1000ML, YELLOW/CLEAR/NONODOROUS.
--- NOTE | 2017-10-24 06:20 | NUR ---
CLEANSED, CHANGE, AND APPLIED NEW DRESSING ON CENTRAL LINE. REMOVED BOTH PERIPHERAL IV'S.
--- NOTE | 2017-10-24 06:26 | NUR ---
RECEIVED PT ON CARESCAPE ON DOCUMENTED SETTINGS ALARMS ARE ON AND AUDIBLE BS CLEAR PT IN HF ASLEEP PTS ET TUBE SIZE 7.5 I SECURE 21 CM ANCHOR FAST IN PLACE VENT PLUGGED INTO RED OUTLET
[2017-10-24 06:40] LABS: BASOPHILS % (AUTO) 0.2 % (0.0-2.0); EOSINOPHILS # (AUTO) 0.1 K/uL (0-0.4); EOSINOPHILS % (AUTO) 0.5 % (0.0-4.0); HEMATOCRIT 33.8 % (36-48); HEMOGLOBIN 10.8 g/dL (12.0-16.0); LYMPHOCYTES # (AUTO) 1.3 K/uL (2.5-16.5); LYMPHOCYTES % (AUTO) 8.6 % (20.5-51.1); MEAN CORPUSCULAR HEMOGLOBIN 28 pg (27-31); MEAN CORPUSCULAR HGB CONC 32 g/dL (33-37); MONOCYTES # (AUTO) 0.8 K/uL (0.8-1.0); MONOCYTES % (AUTO) 5.3 % (1.7-9.3); NEUTROPHILS # (AUTO) 12.6 K/uL (1.8-7.7); NEUTROPHILS % (AUTO) 85.4 % (42.2-75.2); PLATELET COUNT (AUTO) 254 K/uL (140-450); RED BLOOD CELL COUNT(AUTO) 3.88 MIL/uL (4.20-5.40); RED CELL DISTRIBUTION WIDTH 13.9 % (11.6-13.7); WHITE BLOOD COUNT (AUTO) 14.7 K/uL (4.8-10.8)
[2017-10-24 06:50] LABS: T4 (THYROXINE) 6.7 ug/dL (4.5-12.0)
--- NOTE | 2017-10-24 07:08 | NUR ---
RECEIVED BEDSIDE REPORT FROM LIBRARY ASSISTANT RN FOR CONTINUITY OF CARE. PATIENT IS AAOX4, ABLE TO MAKE NEEDS KNOWN. HER SKIN IS INTACT, SHE HAS A CENTRAL LINE TO RIGHT IJ, INSERTED ON THE 10/23 PER LIBRARY ASSISTANT RN. PATIENT HAS ETT TO VENT, SETTINGS ARE AC/VC 20, FIO2 40, TV 450, PEEP 5. SINUS RHYTHM ON MONITOR, BREATHING IS EVEN AND UNLABORED, HYPERTENSIVE. PATIENT HAS NG TUBE IN PLACE TO TUBE FEEDING, GLUCERNA 1.2 AT 30ML/HR WITH 150 H20 FLUSH Q4H. LAST BLOOD SUGAR WAS 95 PER LIBRARY ASSISTANT RN. CALVIN CATHETER IN PLACE. HOB IS 30 DEGREES, CALL LIGHT WITHIN REACH, NO SIGNS OF DISTRESS NOTED AT THIS TIME. WILL CONTINUE TO MONITOR.
[2017-10-24] MEDS: BLOOD GLUCOSE MONITORING 1 DEV DEV FS SCH ×6 (07:11→20:33)
--- NOTE | 2017-10-24 07:34 | NUR ---
PROVIDED BEDSIDE REPORT TO MORNING SHIFT RN FOR CONTINUITY OF CARE. ENDORSED TO FOLLOW-UP WITH FAMILY REGARDING THE RING ON PT LEFT FINGER. PRIOR MORNING SHIFT RN INFORMED THAT FAMILY WOULD WAIVE RIGHT TO HOSPITAL REGARDING PT BELONGING.
--- NOTE | 2017-10-24 08:00 | NUR ---
DR. HUBER AND RESIDENT PHYSICIANS AT BEDSIDE TO ROUND ON PATIENT, UPDATED ON PATIENT'S CONDITION. WILL FOLLOW UP ON ANY ORDERS.
--- NOTE | 2017-10-24 08:05 | NUR ---
PT PLACED ON CPAP 5 PS 10 FIO2 40
--- NOTE | 2017-10-24 08:06 | NUR ---
RT AT BEDSIDE, CHANGE PATIENT VENT SETTING TO CPAP MODE, NO SIGNS OF DISTRESS NOTED AT THIS TIME. WILL CONTINUE TO MONITOR.
[2017-10-24] MEDS: DOXYCYCLINE 100 MG in DEXTROSE 5% 100 ML IV SCH ×2 (08:18→20:16)
[2017-10-24] MEDS: LACTOBACILLUS RHAMNOSUS GG 1 EACH CAP PO SCH (08:18)
[2017-10-24] MEDS: CARVEDILOL 6.25 MG TAB PO SCH ×2 (08:19→20:16)
[2017-10-24] MEDS: amLODIPine 5 MG TAB PO SCH (08:19)
[2017-10-24] MEDS: ASPIRIN 81 MG TAB.CHEW PO SCH (08:19)
[2017-10-24] MEDS: FUROSEMIDE 40 MG TAB PO SCH (08:20)
[2017-10-24] MEDS: ATORVASTATIN 80 MG TAB PO SCH (08:20)
[2017-10-24] MEDS: ENOXAPARIN 30 MG/0.3 ML SYR SUBQ SCH ×2 (08:21→20:20)
[2017-10-24 08:36] LABS: MAGNESIUM 1.7 mg/dL (1.8-2.4)
[2017-10-24 08:38] LABS: ANION GAP 11.7 (8-16); CARBON DIOXIDE 34.6 mmol/L (21-32); CHLORIDE 100 mmol/L (98-107); GLUCOSE 99 mg/dL (74-106); POTASSIUM 3.3 mmol/L (3.5-5.1); SODIUM SERUM 143 mmol/L (136-145); UREA NITROGEN, BLOOD 19 mg/dL (7-18)
[2017-10-24] MEDS: methylPREDNISolone SS 40 MG/ML VIAL IVP SCH (08:42)
[2017-10-24] MEDS: LISINOPRIL 20 MG TAB PO SCH (08:42)
[2017-10-24] MEDS: PANTOPRAZOLE 40 MG INJ VIAL IVP SCH (08:42)
--- NOTE | 2017-10-24 09:12 | NUR ---
DR. SILVER IN TO SEE AND EXAMINE PATIENT, UPDATED ON PATIENT'S CONDITION. WILL FOLLOW UP ON ANY ORDERS.
[2017-10-24] MEDS: NACL 0.9% 1,000 ML IV SCH ×2 (09:18→17:46)
--- NOTE | 2017-10-24 09:31 | NUR ---
RONNELL REPORTED TO DR KHAN Addendum: 10/24/17 at 0913 by Yelena Sahu RT Ina SILVER
--- NOTE | 2017-10-24 09:34 | NUR ---
RT AT BEDSIDE TO EXTUBATE PATIENT PER DR. SILVER ORDER, WILL CONTINUE TO MONITOR PATIENT FOR ANY SIGNS OF DISTRESS.
--- NOTE | 2017-10-24 09:40 | NUR ---
PT EXTUBATED W\O INCIDENT PLACED ON 3 L N/C
--- NOTE | 2017-10-24 09:43 | NUR ---
PATIENT IS EXTUBATED BY RT, PLACED ON NASAL CANNULA 3L, NO SIGNS OF DISTRESS NOTED AT THIS TIME, WILL CONTINUE TO MONITOR
--- NOTE | 2017-10-24 10:26 | NUR ---
CALLED DR. MEDELLIN REGARDING PATIENT EXTUBATION AND ABNORMAL LABS, STATES THAT HE WILL REPLETE ELECTROLYTES AND ORDER SWALLOW EVAL. PATIENT IS OBSERVED WATCHING TV, NO SIGNS OF DISTRESS NOTED
--- NOTE | 2017-10-24 10:32 | NUR ---
PT HAD LARGE PASTY BM AT THIS TIME. PERICARE PROVIDED.
--- NOTE | 2017-10-24 10:50 | NUR ---
PATIENT FRIEND AT BEDSIDE, PATIENT IS AWARE TO NOT ENGAGE IN TOO MUCH DISCUSSION DUE TO BEING EXTUBATED. NO SIGNS OF DISTRESS NOTED AT THIS TIME. WILL CONTINUE TO MONITOR
[2017-10-24] MEDS ORDERED: MAG SULF 2000 MG/WATER PREMIX 50 ML IV ONE (11:55)
[2017-10-24] MEDS ORDERED: KCL 20 MEQ/WATER INJ PREMIX 100 ML IV SCH (12:00)
--- NOTE | 2017-10-24 12:12 | NUR ---
PATIENT IS OBSERVED SLEEPING, NO SIGNS OF DISTRESS NOTED AT THIS TIME. WILL CONTINUE TO MONITOR
--- NOTE | 2017-10-24 12:30 | NUR ---
DR. MEDELLIN IN TO SEE AND EXAMINE PATIENT, UPDATED ON PATIENT'S CONDITION. WILL FOLLOW UP ON ANY ORDERS.
[2017-10-24] MEDS: HYDROcodone/APAP 7.5/325 MG 1 TAB PO PRN ×3 (12:46→23:37)
--- NOTE | 2017-10-24 12:46 | NUR ---
PATIENT TURNED AND REPOSITIONED, HAD A MODERATE AMOUNT BOWEL MOVEMENT. STATED SHE IS HAVING RIGHT HIP PAIN 6/10, ADMINISTERED NORCO PRN.
[2017-10-24] MEDS: MAGNESIUM SULFATE 1GM in DEXTROSE 5% 100 ML PREMIX IV SCH ×2 (13:55→15:05)
--- NOTE | 2017-10-24 14:08 | NUR ---
FAXED CONCURRENT REVIEW TO [facility] [phone] PHONE RADHA [phone]
--- NOTE | 2017-10-24 14:19 | NUR ---
PATIENT'S FAMILY AT BEDSIDE, UPDATED ON PATIENT'S CONDITION. NO SIGNS OF DISTRESS NOTED AT THIS TIME. WILL CONTINUE TO MONITOR
[2017-10-24] MEDS: GABAPENTIN 100 MG CAP PO PRN ×2 (15:04→20:33)
--- NOTE | 2017-10-24 15:12 | NUR ---
PATIENT COMPLAINING OF 7/10 PAIN, ADMINISTERED GABAPENTIN FOR SEVERE PAIN. WILL CONTINUE TO MONITOR.
--- NOTE | 2017-10-24 15:30 | NUR ---
PATIENT'S DAUGHTER CAME TO BRING PATIENT'S DENTURES AND EYE GLASSES PER PATIENT'S REQUEST. PATIENTS BELONGINGS LIST UPDATED. SHE HAS DENTURES, EYE GLASSES, AND CLOTHES AT BEDSIDE.
[2017-10-24] MEDS ORDERED: DEXTROSE 50% 50 ML SYR IVP PRN (15:55)
--- NOTE | 2017-10-24 16:26 | NUR ---
DR. MEDELLIN IN TO SEE AND TALK TO PATIENT, UPDATED ON PATIENT'S CONDITION. WILL FOLLOW UP ON ANY ORDERS.
[2017-10-24] MEDS: metFORMIN 500 MG TAB PO SCH (17:14)
[2017-10-24] MEDS: INSULIN LISPRO SLIDING SCALE 100 UNITS/ML VIAL SUBQ PRN (17:15)
--- NOTE | 2017-10-24 17:25 | NUR ---
CLEANED AND REPOSITION PATIENT, SHE HAD A MODERATED AMOUNT BOWEL MOVEMENT. PROVIDED CALVIN CARE, CHANGED TUBE FEEDING.
--- NOTE | 2017-10-24 18:06 | NUR ---
DR. MOREL IN TO SEE AND EXAMINE PATIENT, UPDATED ON PATIENT'S CONDITION. WILL FOLLOW UP ON ANY ORDERS.
--- NOTE | 2017-10-24 18:12 | NUR ---
PATIENT HAD ANOTHER BM, STATES SHE'S IS HAVING PAIN AND WOULD LIKE A PAIN PILL, I ADMINISTERED NORCO PRN.
--- NOTE | 2017-10-24 18:23 | NUR ---
PATIENT IS OBSERVED SLEEPING, NO SIGNS OF DISTRESS NOTED AT THIS TIME. WILL CONTINUE TO MONITOR
--- NOTE | 2017-10-24 19:05 | NUR ---
ENDORSED BEDSIDE REPORT TO DIRECTOR COST RN, PATIENT PRESENTS NO SIGNS OF DISTRESS AT THIS TIME.
--- NOTE | 2017-10-24 19:10 | NUR ---
RECEIVED REPORT FROM AM NURSE. PT AA0 X 4. RESPONDS TO VERBAL AND TACTILE STIMULI. FOLLOWS COMMANDS. AFEBRILE. LUNG SOUNDS DIMINISHED BILATERALLY. ON NC 3LPM. S1 & S2 SOUNDS PRESENT. NO EDEMA NOTED. SR ON MONITOR. ABD SOFT ROUND NON DISTENDED. NGT TO L NARE. NO RESIDUAL NOTED. ON GLUCERNA 1.2 @ 55ML/HR. FC PRESENT. URINE CLEAR, YELLOW. RIJ IV CENTRAL LINE PATENT. DRESSING CLEAN. SKIN WARM AND DRY. REDNESS TO SACRAL COCCYX AREA NOTED. SIDE RAILS UP X 4. BED IN LOWEST POSITION. CALL LIGHT WITHIN REACH. WILL CONTINUE TO MONITOR.
--- NOTE | 2017-10-24 20:33 | NUR ---
PT C/O PAIN 10/03 TO HIP. GABAPENTIN ADMINISTERED VIA NGT. WILL REASSESS PAIN LEVELS.
--- NOTE | 2017-10-24 22:20 | NUR ---
PT REQUESTS JAMIL CARRASQUILLO QHS. NO SIGNS OF ACUTE DISTRESS NOTED. WILL CONTINUE TO MONITOR
[2017-10-24] MEDS: ZOLPIDEM 5 MG TAB PO PRN (22:21)
--- NOTE | 2017-10-24 23:30 | NUR ---
PT C/O PAIN 09/03 TO HIP. NORCO ADMINISTERED FOR PAIN.
[2017-10-25] VITALS (43 sets, daily range): BP systolic 130–186; BP diastolic 50–95
--- NOTE | 2017-10-25 00:20 | NUR ---
PT HAD A RUN OF V-TACH [address] GELLER NOTIFIED. NEW ORDERS OF MAG-RIDER 2GM, KCL 20MEQ, AND AMIODARONE 150MG PER PROTOCOL. WILL CONTINUE TO MONITOR
[2017-10-25] MEDS ORDERED: MAG SULF 2000 MG/WATER PREMIX 50 ML IV ONE (00:27)
[2017-10-25] MEDS ORDERED: AMIODARONE 150 MG in DEXTROSE 5% 100 ML IV SCH (00:30)
[2017-10-25] MEDS ORDERED: AMIODARONE 150 MG/3 ML VIAL IV ONE (00:36)
[2017-10-25] MEDS ORDERED: AMIODARONE 450 MG/9 ML VIAL IV ONE (00:36)
[2017-10-25] MEDS ORDERED: KCL 20 MEQ/WATER INJ PREMIX 100 ML IV SCH (01:00)
[2017-10-25] MEDS ORDERED: MAG SULF 2000 MG/WATER PREMIX 50 ML IV SCH (01:00)
[2017-10-25] MEDS ORDERED: AMIODARONE 450 MG in DEXTROSE 5% 250 ML IV SCH (01:00)
[2017-10-25] MEDS: HYDRAGUARD CREAM TP SCH ×2 (01:01→12:53)
--- NOTE | 2017-10-25 01:35 | NUR ---
PT HAD ANOTHER LARGE BM AT THIS TIME. JANE CARE PROVIDED. PATIENT REPOSITIONED TO OFF LOAD PRESSURE AREAS.
[2017-10-25] MEDS: HYDROcodone/APAP 7.5/325 MG 1 TAB PO PRN ×5 (03:52→23:55)
--- NOTE | 2017-10-25 04:00 | NUR ---
PT C/O PAIN 09/03 TO HIP. NORCO GIVEN AT THIS TIME.
[2017-10-25 04:58] LABS: BASOPHILS # (AUTO) 0.1 K/uL (0.00-0.22); BASOPHILS % (AUTO) 0.8 % (0.0-2.0); EOSINOPHILS # (AUTO) 0.1 K/uL (0-0.4); EOSINOPHILS % (AUTO) 0.5 % (0.0-4.0); HEMATOCRIT 36.5 % (36-48); HEMOGLOBIN 11.6 g/dL (12.0-16.0); LYMPHOCYTES # (AUTO) 1.1 K/uL (2.5-16.5); LYMPHOCYTES % (AUTO) 7.4 % (20.5-51.1); MEAN CORPUSCULAR HEMOGLOBIN 28 pg (27-31); MEAN CORPUSCULAR HGB CONC 32 g/dL (33-37); MONOCYTES # (AUTO) 0.8 K/uL (0.8-1.0); MONOCYTES % (AUTO) 5.9 % (1.7-9.3); NEUTROPHILS # (AUTO) 12.3 K/uL (1.8-7.7); NEUTROPHILS % (AUTO) 85.4 % (42.2-75.2); PLATELET COUNT (AUTO) 281 K/uL (140-450); RED BLOOD CELL COUNT(AUTO) 4.15 MIL/uL (4.20-5.40); RED CELL DISTRIBUTION WIDTH 14.1 % (11.6-13.7); WHITE BLOOD COUNT (AUTO) 14.4 K/uL (4.8-10.8)
[2017-10-25] MEDS: PIPER/TAZO 2.25GM/D5W PREMIX 50 ML IV SCH (05:00)
--- NOTE | 2017-10-25 05:57 | NUR ---
PT REFUSED AM CARE IN FAVOR OF SLEEP. EXPLAINED RISK V. BENEFITS. STILL PREFERS TO SLEEP AT THIS TIME.
--- NOTE | 2017-10-25 06:34 | NUR ---
DR BONILLA AT BEDSIDE TO EXAMINE PATIENT. INFORMED OF CURRENT CONDITION. AWAITING NEW ORDERS AT THIS TIME.
[2017-10-25] MEDS: BLOOD GLUCOSE MONITORING 1 DEV DEV FS SCH ×5 (06:42→21:20)
--- NOTE | 2017-10-25 06:48 | NUR ---
RT AT BEDSIDE FOR EKG AT THIS TIME.
--- NOTE | 2017-10-25 07:06 | NUR ---
RECEIVED BEDSIDE REPORT FROM PIPE ORGAN BUILDER RN FOR CONTINUITY OF CARE. PATIENT IS OBSERVED SLEEPING, AAOX4, ABLE TO MAKE NEEDS KNOWN. HER SKIN IS WARM AND DRY, SHE HAS A CENTRAL LINE TO RIGHT IJ IN PLACE, PATENT, ASYMPTOMATIC. SHE IS ON O2 NASAL CANNULA 3LPM, BREATHING IS EVEN AND UNLABORED, SINUS NELSON ON MONITOR AT THIS TIME, DENIES ANY PAIN. PER PIPE ORGAN BUILDER RN, PATIENT HAD EPISODE OF VTACH, SHE IS ON AMNIODARONE DRIP AT 0.5. PATIENT HAS NG TUBE IN PLACE TO LEFT NARES, NO RESIDUAL NOTED AT THIS TIME. SHE HAS A CALVIN CATHETER IN PLACE TO YELLOW STRAW COLORED URINE. HOB IS IN SEMI JIMÉNEZ POSITION, CALL LIGHT IS WITHIN REACH, ALL SAFETY PRECAUTIONS IN PLACE. NO SIGNS OF DISTRESS NOTED AT THIS TIME, WILL CONTINUE TO MONITOR.
--- NOTE | 2017-10-25 07:07 | NUR ---
ENDORSED CARE TO INCOMING SHIFT FOR CONTINUITY OF CARE. PT RESTING QUIETLY. NO SIGNS OF ACUTE DISTRESS AT THIS TIME. SIDE RAILS UP X 4. BED IN LOWEST POSITION. CALL LIGHT WITHIN REACH.
[2017-10-25 07:20] LABS: ANION GAP 8.6 (8-16); CARBON DIOXIDE 34.2 mmol/L (21-32); CHLORIDE 100 mmol/L (98-107); CREATININE 1.1 mg/dL (0.6-1.3); GLUCOSE 120 mg/dL (74-106); POTASSIUM 3.8 mmol/L (3.5-5.1); SODIUM SERUM 139 mmol/L (136-145); UREA NITROGEN, BLOOD 21 mg/dL (7-18)
[2017-10-25 07:25] LABS: MAGNESIUM 2.5 mg/dL (1.8-2.4); PHOSPHORUS 3.6 mg/dL (2.5-4.9)
--- NOTE | 2017-10-25 07:53 | NUR ---
SUPPLY CHAIN COORDINATOR AT BEDSIDE FOR CHEST XRAY, NO SIGNS OF DISTRESS NOTED AT THIS TIME.
--- NOTE | 2017-10-25 08:04 | NUR ---
DR. HUBER AND RESIDENT PHYSICIANS AT BEDSIDE TO ROUND ON PATIENT, UPDATED ON PATIENT'S CONDITION. WILL FOLLOW UP ON ANY ORDERS.
[2017-10-25] MEDS: PANTOPRAZOLE 40 MG INJ VIAL IVP SCH (08:17)
[2017-10-25] MEDS: methylPREDNISolone SS 40 MG/ML VIAL IVP SCH (08:18)
[2017-10-25] MEDS: metFORMIN 500 MG TAB PO SCH ×2 (08:19→17:33)
[2017-10-25] MEDS: LACTOBACILLUS RHAMNOSUS GG 1 EACH CAP PO SCH (08:19)
[2017-10-25] MEDS: LISINOPRIL 20 MG TAB PO SCH ×2 (08:19→09:00)
[2017-10-25] MEDS: ASPIRIN 81 MG TAB.CHEW PO SCH (08:20)
[2017-10-25] MEDS: CARVEDILOL 6.25 MG TAB PO SCH ×2 (08:20→20:25)
[2017-10-25] MEDS: amLODIPine 5 MG TAB PO SCH (08:20)
[2017-10-25] MEDS: FUROSEMIDE 40 MG TAB PO SCH (08:21)
--- NOTE | 2017-10-25 08:24 | NUR ---
PT AT BEDSIDE WITH PATIENT, NO SIGNS OF DISTRESS NOTED AT THIS TIME
[2017-10-25] MEDS: DOXYCYCLINE 100 MG in DEXTROSE 5% 100 ML IV SCH (08:39)
[2017-10-25] MEDS: ATORVASTATIN 80 MG TAB PO SCH (08:39)
[2017-10-25] MEDS ORDERED: MORPHINE SULFATE 2 MG/ML SYR IVP PRN ×2 (08:40→09:10)
[2017-10-25] MEDS: ENOXAPARIN 30 MG/0.3 ML SYR SUBQ SCH ×2 (08:43→20:30)
[2017-10-25] MEDS ORDERED: INSULIN LANTUS 100 UNITS/ML 10 ML VIAL SUBQ SCH (09:00)
--- NOTE | 2017-10-25 09:08 | NUR ---
ADMINISTERED SCHEDULED MEDS AND NORCO PRN FOR 6/10 RIGHT HIP PAIN, PATIENT IS RESTING COMFORTABLY WATCHING TV AT THIS TIME.
--- NOTE | 2017-10-25 09:25 | NUR ---
DR. SILVER IN TO SEE AND EXAMINE PATIENT WITH RESIDENT DR. BONILLA, UPDATED ON PATIENT'S CONDITION. WILL FOLLOW UP ON ANY ORDERS.
--- NOTE | 2017-10-25 09:26 | NUR ---
PER DR. SILVER, "SWALLOW EVAL IS NOT NECESSARY IF PATIENT CAN SWALLOW WATER AND APPLESAUCE", PATIENT WAS GIVEN APPLESAUCE WITH DR. SILVER AT BEDSIDE, STATED NO NEED FOR SWALLOW EVAL. WILL FOLLOW UP ON DIET ORDERS.
--- NOTE | 2017-10-25 10:05 | NUR ---
REMOVED NG TUBE PER DR ORDERS, PATIENT TOLERATED WELL. NO SIGNS OF DISTRESS OR DISCOMFORT NOTED
--- NOTE | 2017-10-25 10:22 | NUR ---
DR. GELLER IN TO SEE AND EXAMINE PATIENT, UPDATED ON PATIENT'S CONDITION WITH DR. BONILLA, WILL FOLLOW UP ON ANY ORDERS.
--- NOTE | 2017-10-25 11:29 | NUR ---
[facility], UPDATED ON PATIENT'S CONDITION. NO SIGNS OF DISTRESS NOTED.
[2017-10-25] MEDS: KETOROLAC 15 MG/ML VIAL IVP PRN ×2 (11:53→20:00)
--- NOTE | 2017-10-25 12:37 | NUR ---
ST AT BEDSIDE FOR SWALLOW EVAL, AWARE THAT DR. BONILLA PUT ORDER FOR PUREED DIET BUT STILL WANTS EVALUATION DONE.
--- NOTE | 2017-10-25 12:40 | NUR ---
FAMILY AT BEDSIDE, NO SIGNS OF DISTRESS AT THIS TIME
--- NOTE | 2017-10-25 12:52 | NUR ---
TIRE VULCANIZER NOTE [id number] Bedside swallow evaluation completed following clearance by ORACLE ANALYST David. Please refer to TIRE VULCANIZER evaluation for full report. Recommend: -Mechanical soft/ground texture + thin liquids. Extra broth/gravy on the side for each meal tray. -Upright at 90 during and 20 min after intake -Small bites/sips, slow rate, alternate bites/sips -TIRE VULCANIZER to follow 1x/wk x1wk for diet tolerance and advancement as appropriate. PVE w/family at bedside and RN re: results and recommendations. All voiced agreement to TIRE VULCANIZER points of campo. G8996: CJ G8997: CI Swallow NOMS 3
[2017-10-25] MEDS: PIPER/TAZO 3.375GM/D5W PREMIX 50 ML IV SCH ×3 (12:53→23:56)
--- NOTE | 2017-10-25 13:39 | NUR ---
DR. BONILLA IN TO SPEAK WITH FAMILY ABOUT PATIENT'S CONDITION.
[2017-10-25] MEDS: NACL 0.9% 1,000 ML IV SCH (13:54)
--- NOTE | 2017-10-25 13:57 | NUR ---
PATIENT'S SON ALBERTO, STATES THAT HE FAXED INFORMATION REGARDING POWER OF PRESSURE DISPATCHER OF PATIENT TO SOMEONE NAMED EFRA, HOWEVER THE INFORMATION IS NOT IN PATIENT'S CHART. WILL FOLLOW UP WITH CASE MANAGEMENT REGARDING THE INFORMATION FAXED.
--- NOTE | 2017-10-25 14:16 | NUR ---
SPOKE WITH CUSTOMER ENGINEERING SPECIALIST, ROBIN WAS THE PERSON THE PATIENT'S SON ALBERTO SPOKE TO AND FAXED THE INFORMATION TO. SHE CAME TO BRING US A COPY OF THE INFORMATION STATING POWER OF BOTTLE CASER. HOWEVER AFTER SPEAKING WITH DR. BONILLA, THE INFORMATION NEEDS MORE CLARIFICATION. Addendum: 10/25/17 at 1806 by David Avila RN CORRECTION: ROBIN WAS NOT THE PERSON THE PATIENT'S SON ALBERTO SPOKE TO. CUSTOMER ENGINEERING SPECIALIST RECEIVED THE COPY FROM DR. BONILLA, NOT THROUGH FAX FROM PATIENT'S SON.
--- NOTE | 2017-10-25 14:34 | NUR ---
FAXED CONCURRENT REVIEW TO [facility] [phone] PHONE RADHA [phone]
--- NOTE | 2017-10-25 14:49 | NUR ---
PATIENT IS WATCHING TV, RESTING COMFORTABLY. NO SIGNS OF DISTRESS NOTED
--- NOTE | 2017-10-25 16:21 | NUR ---
PATIENT'S DAUGHTER AT BEDSIDE, NO SIGNS OF DISTRESS NOTED AT THIS TIME.
[2017-10-25] MEDS ORDERED: ARTIFICIAL TEARS OPHTH OINT 3.5 GM TUBE OP PRN (16:35)
--- NOTE | 2017-10-25 17:43 | NUR ---
ADMINISTERED SCHEDULED MEDS, PATIENT TOLERATED WELL. PATIENT IS OBSERVED EATING DINNER WITH FAMILY AT BEDSIDE. NO SIGNS OF DISTRESS NOTED.
--- NOTE | 2017-10-25 17:45 | NUR ---
RECEIVE CALL FROM TELE, PATIENT HAS A BED 110 A.
--- NOTE | 2017-10-25 18:20 | NUR ---
RECEIVED FROM ICU VIA GURNEY ACCOMPANIED BY PT. DAUGHTER. PT. AWAKE, ALERT, AND ORIENTED X3. SPEECH CLEAR. NO C/O PAIN. NO SOB, NOTED. SKIN BRUISE BUE, NO ACUTE DISTRESS NOTED. NOTED. HOB ELEVATED AND KEEP COMFORTABLE.
--- NOTE | 2017-10-25 18:41 | NUR ---
TRANSFERRED PATIENT TO [facility], NO SIGNS OF DISTRESS NOTED. ENDORSED REPORT TO MST RN FOR CONTINUITY OF CARE
--- NOTE | 2017-10-25 19:13 | NUR ---
BEDSIDE REPORT GIVEN TO COLUMBA GORMAN -DAMARIS. IVF INFUSING WELL. IN STABLE CONDITION.
--- NOTE | 2017-10-25 19:15 | NUR ---
RECEIVED PT AWAKE ON BED, AAOX3, FORGETFUL AT TIMES, VITAL SIGNS TAKEN, BP ELEVATED, ASYMPTOMATIC, WILL GIVE DUE BP MEDICATION, COMPLAINING OF RT HIP PAIN, WILL MEDICATE WHEN DUE, REPOSITION FOR COMFORT, IVF INFUSING WELL VIA RT IJ CVP LINE TRIPLE LUMEN, DRESSING DRY AND INTACT, CALVIN CATHETER IN PLACE DRAINING WELL VIA GRAVITY, PLAN OF CARE DISCUSS, SAFETY MEASURES IN PLACE, CALL LIGHT WITHIN REACH.
[2017-10-25] MEDS: INSULIN LISPRO SLIDING SCALE 100 UNITS/ML VIAL SUBQ PRN (20:30)
--- NOTE | 2017-10-25 20:30 | NUR ---
BLOOD SUGAR CHECKED WITH 168 RESULT, COVERAGE GIVEN, ORANGE JUICE AND JEELO PROVIDED, TOLERATED WELL, DUE MEDS ADMINISTERED, ALL NEEDS ATTENDED, REPOSITIONED Q2H AND OFFLOAD PRESSURE AREAS.
[2017-10-25] MEDS: ZOLPIDEM 5 MG TAB PO PRN (21:54)
[2017-10-26] VITALS: BP 164/58
--- NOTE | 2017-10-26 | NUR ---
PT AWAKE COMPLAINING OF RT HIP PAIN, VITAL SIGNS TAKEN, BP ELEVATED, DENIES CHEST PAIN, NO SOB NOTED, DR WELLINGTON MAD AWARE OF ELEVATED BP, WILL PUT ORDER, MEDICATED PRN FOR HIP PAIN WITH NORCO, CONTINUE TO MONITOR CLOSELY.
[2017-10-26] MEDS: HYDRAGUARD CREAM TP SCH ×2 (01:20→12:59)
[2017-10-26 04:00] VITALS: BP_SYST 173; BP_SYST 175; BP_DIAS 65; BP_DIAS 68
[2017-10-26] MEDS ORDERED: hydrALAZINE 20 MG/ML VIAL IVP PRN (04:05)
[2017-10-26] MEDS: HYDROcodone/APAP 7.5/325 MG 1 TAB PO PRN ×2 (04:12→09:34)
--- NOTE | 2017-10-26 04:12 | NUR ---
PT AWAKE COMPLAINING OF RT HIP PAIN, VITAL SIGNS TAKEN, BP-173/65, DENIES CHEST PAIN, NO SOB NOTED, MEDICATED WITH NORCO FOR PAIN, DR WELLINGTON MADE AWARE OF ELEVATED BP, REPOSITION PT FOR COMFORT, MONITORED CLOSELY.
[2017-10-26] MEDS: NACL 0.9% 1,000 ML IV SCH (04:13)
--- NOTE | 2017-10-26 04:47 | NUR ---
WITH PRN ORDER OF APRESOLINE FOR SBP ABOVE 170, BP RECHECKED-147/64, HR-66, PRN APRESOLINE IVP HOLD FOR NOW, MONITORED CLOSELY.
[2017-10-26] MEDS: PIPER/TAZO 3.375GM/D5W PREMIX 50 ML IV SCH ×4 (05:33→23:01)
--- NOTE | 2017-10-26 06:00 | NUR ---
BLOOD SUGAR CHECKED WITH 77 RESULT, PT ASYMPTOMATIC, TOLERATED APPLE JUICE X2, IVF INFUSING WELL, MONITORED CLOSELY.
[2017-10-26 06:45] LABS: BASOPHILS % (AUTO) 0.1 % (0.0-2.0); EOSINOPHILS % (AUTO) 0.3 % (0.0-4.0); HEMATOCRIT 36.5 % (36-48); HEMOGLOBIN 11.7 g/dL (12.0-16.0); LYMPHOCYTES # (AUTO) 1.2 K/uL (2.5-16.5); MEAN CORPUSCULAR HEMOGLOBIN 28 pg (27-31); MEAN CORPUSCULAR HGB CONC 32 g/dL (33-37); MEAN CORPUSCULAR VOLUME 87.6 fL (80-94); MONOCYTES # (AUTO) 0.7 K/uL (0.8-1.0); MONOCYTES % (AUTO) 5.1 % (1.7-9.3); NEUTROPHILS # (AUTO) 11.6 K/uL (1.8-7.7); NEUTROPHILS % (AUTO) 85.5 % (42.2-75.2); PLATELET COUNT (AUTO) 274 K/uL (140-450); RED BLOOD CELL COUNT(AUTO) 4.16 MIL/uL (4.20-5.40); RED CELL DISTRIBUTION WIDTH 14.1 % (11.6-13.7); WHITE BLOOD COUNT (AUTO) 13.5 K/uL (4.8-10.8)
[2017-10-26] MEDS: BLOOD GLUCOSE MONITORING 1 DEV DEV FS SCH ×4 (06:53→20:42)
[2017-10-26 07:18] LABS: ANION GAP 8.7 (8-16); CARBON DIOXIDE 32.9 mmol/L (21-32); CHLORIDE 100 mmol/L (98-107); CREATININE 1.2 mg/dL (0.6-1.3); GLUCOSE 88 mg/dL (74-106); POTASSIUM 3.6 mmol/L (3.5-5.1); SODIUM SERUM 138 mmol/L (136-145); UREA NITROGEN, BLOOD 22 mg/dL (7-18)
--- NOTE | 2017-10-26 07:27 | NUR ---
RECEIVED PT FROM MANUFACTURING QUALITY TECHNICIAN NURSE COLUMBA, PT AWAKE IN BED, ALERT, ABLE TO MAKE NEEDS KNOWN. RIGHT CENTRAL LINE IN PLACE, TRIPLE LUMEN, DRESSING INTACT. CALVIN CATHETER DRAINING YELLOW URINE. ON 3 L NC LUNG SOUNDS CLEAR. REDNESS NOTED ON SACRAL AREA, SMALL BRUISES ON BOTH ARMS. PT REQUEST PAIN MEDICATION FOR CHRONIC HIP PAIN. WILL MEDICATE ACCORDING TO DRS ORDER. UPDATED BOARD, EXPLAINED PLAN OF CARE. CALL LIGHT WITH IN REACH, WILL CONTINUE TO MONITOR.
--- NOTE | 2017-10-26 07:27 | NUR ---
RECEIVED BEDSIDE REPORT FORM STOCK CHECKER NURSE LUIS. PT ON RA, SLEEPING, NO SIGNS OF DISTRESS. IV IN RIGHT HAND, SL, PATENT, DRESSING INTACT. V/S TAKEN ALL WITHIN PTS BASELINE. PT STATES "I'M PISSED BECAUSE I CAME IN LOOKING LIKE THIS AND NOTHINGS CHANGED. I LOOK . I'VE ONLY USED THE RESTROOM A LITTLE BIT YESTERDAY. I DON'T CARE IF I GO HOME TODAY ALL I WANT IS A WRITTEN PRESCRIPTION." UPDATED BOARD CALL LIGHT WITHIN REACH. WILL CONTINUE TO MONITOR.
--- NOTE | 2017-10-26 07:27 | NUR ---
PT AWAKE NO SIGNS OF DISTRESS, REPORT GIVEN TO SUMMER RN FOR CONTINUITY OF CARE.
[2017-10-26] MEDS ORDERED: LIP80 PO (07:39)
[2017-10-26] MEDS ORDERED: HYDR-4420 PO (07:39)
[2017-10-26] MEDS ORDERED: CARV6.252 PO (07:39)
[2017-10-26 07:42] LABS: MAGNESIUM 1.7 mg/dL (1.8-2.4); PHOSPHORUS 3.9 mg/dL (2.5-4.9)
[2017-10-26] MEDS ORDERED: LISI-420 PO (07:42)
[2017-10-26] MEDS ORDERED: AMLO5TAB4 PO (07:43)
[2017-10-26 08:00] VITALS: BP 103/64
--- NOTE | 2017-10-26 08:09 | NUR ---
B/P 103/64. WILL HOLD DUE HYDRALAZINE AND COREG. Addendum: 10/26/17 at 817 by Abigail Weeks RN CONSULTED WITH DR MOREL REGARDING BP 103/64 AND DUE MEDICATIONS. WILL HOLD DUE B/P MEDICATIONS. Addendum: 10/26/17 at 822 by Abigail Weeks RN TALKED TO DR BONILLA, WILL HOLD COREG AND HYDRALAZINE.
[2017-10-26] MEDS ORDERED: LACT10CA PO (08:16)
[2017-10-26] MEDS ORDERED: PIPE1SOL IV (08:16)
[2017-10-26] MEDS: metFORMIN 500 MG TAB PO SCH ×2 (08:33→18:19)
[2017-10-26] MEDS: PANTOPRAZOLE 40 MG INJ VIAL IVP SCH (08:33)
[2017-10-26] MEDS: FUROSEMIDE 40 MG/5 ML ORAL SOL UDC PO SCH (08:35)
[2017-10-26] MEDS: ATORVASTATIN 80 MG TAB PO SCH (08:35)
[2017-10-26] MEDS: LACTOBACILLUS RHAMNOSUS GG 1 EACH CAP PO SCH (08:35)
[2017-10-26] MEDS: CARVEDILOL 6.25 MG TAB PO SCH ×3 (08:35→20:03)
[2017-10-26] MEDS: LISINOPRIL 20 MG TAB PO SCH (08:36)
[2017-10-26] MEDS: amLODIPine 5 MG TAB PO SCH (08:39)
[2017-10-26] MEDS: ASPIRIN 81 MG TAB.CHEW PO SCH (08:39)
[2017-10-26] MEDS: ENOXAPARIN 30 MG/0.3 ML SYR SUBQ SCH ×2 (08:46→20:09)
[2017-10-26] MEDS ORDERED: CARVEDILOL 6.25 MG TAB PO SCH (09:00)
[2017-10-26] MEDS ORDERED: hydrALAZINE 25 MG TAB PO SCH (09:00)
[2017-10-26] MEDS ORDERED: MAG SULF 2000 MG/WATER PREMIX 50 ML IV ONE (10:15)
--- NOTE | 2017-10-26 11:00 | NUR ---
B/P 169/60. NOTIFIED DR BONILLA. DR ORDERED TO GIVE PREVIOUSLY HELD COREG, REASSESS 30 MINS LATER, THAN REPORT NEW B/P. WILL FOLLOW WITH MD ORDERS.
[2017-10-26] MEDS ORDERED: OXYCODONE HCL 15 MG PO PRN (11:05)
--- NOTE | 2017-10-26 11:30 | NUR ---
B/P 156/58. DR BONILLA AWARE, NO NEW ORDERS.
[2017-10-26] MEDS: MAGNESIUM SULFATE 1GM in DEXTROSE 5% 100 ML PREMIX IV SCH ×2 (11:34→12:59)
[2017-10-26 12:00] VITALS: BP 156/58
--- NOTE | 2017-10-26 12:15 | NUR ---
PT RESTING IN BED, NO SIGNS OF DISTRESS, CALL LIGHT WITHIN REACH, WILL CONTINUE TO MONITOR.
[2017-10-26] MEDS ORDERED: oxyCODONE 5 MG TAB PO SCH (13:15)
--- NOTE | 2017-10-26 13:23 | NUR ---
PLATE STACKER note (dysphagia therapy) [phone]. S/O: Dysphagia therapy provided following clearance by RN (Summer). Pt positioned upright in bed, friend present at bedside who reported she is very concerned that pt is having difficulty swallowing and is concerned that pt is going to get pneumonia. Pt coughing a lot and c/o "phlegm" and taking big gasping-appearing breaths. PLATE STACKER encouraged pt to cough volitionally and had pt stop taking additional PO from her lunch tray and removed pt's lunch tray (with pt's agreement). A/P: Pt demonstrated wet breath sounds and coughing with mechanical soft ground textures. Pt tolerated pureed textures and small sips of thin liquids without difficulty and without overt signs/symptoms of aspiration at this time. PLATE STACKER provided pt and pt's friend at bedside with education regarding aspiration/PNA and rationale for recommendations. Pt verbalized agreement with recommendations at this time. Pt left in care of RN, who was present at bedside to administer pain medications, per pt's request. Recommend: 1) pureed textures 2) thin liquids 3) STRICT aspiration precautions (including pt must be FULLY awake/alert/upright for any PO intakes, alternate small/slow bites and sips, stop giving PO if pt becomes less alert/SOB/coughing) 4) feeding supervision/assistance 5) PLATE STACKER to continue to f/u 2 x week x 2 weeks for dysphagia/continued assessment of pt's ability to tolerate advanced textures safely PVE for d/w RN (Summer) prior to and following dysphagia therapy session. Addendum: 10/26/17 at 1330 by Natalie HERNANDEZ Bedside safe swallow strategies sign updated to reflect new recommendations.
--- NOTE | 2017-10-26 14:00 | NUR ---
PT C/O OF SEVERE PAIN WILL MEDICATE ACCORDING TO GUILLE BAILON.
--- NOTE | 2017-10-26 14:27 | NUR ---
LATE ENTRY FAXED ORDER FOR SNF TO [facility] [phone] AND SPOKE WITH RUBIO GARCIA # [phone] WHO SAID TO SEND [facility] TO [facility], [facility], [facility], [facility] OR [facility]. MIKALA LAWTON.
--- NOTE | 2017-10-26 14:38 | NUR ---
LATE ENTRY LEFT MESSAGE FOR [facility] RUBIO GARCIA PH# [phone] THAT ORDER FOR [facility] WAS CANCELLED
--- NOTE | 2017-10-26 15:05 | NUR ---
CM NOTE RECEIVED CALL FROM [facility] PH# [phone] THAT THEY CAN TAKE PATIENT TO [address] RICE IF PATIENT AGREEABLE, ABHIJEET ZIEGLER [facility] AWARE. PER ABHIJEET OF [facility] PH# [phone], FOR [facility] AUTH# [id number]. MIKALA ESPINOZA AWARE
[2017-10-26] MEDS: INSULIN LISPRO SLIDING SCALE 100 UNITS/ML VIAL SUBQ PRN (15:13)
--- NOTE | 2017-10-26 15:52 | NUR ---
Dry Goods Inspector Notes: I meet with Patient, daughter Micheline and Son Bola at bedside to discuss Patient's discharge to SNF today and informed him that many inquires have been made for short term Placement to [facility], [facility], [facility] and [facility]. I also Informed Patient and adult children that [facility] responded the inquire and do have a bed available for Patient if she will discharge today. Son Bola and Patient stated that discharge its too soon and will feel safer if all arrangements for placement were made tomorrow, Son also stated wanting to contact facility and visit before patient is placed there. I informed him that it will be important to meet with MD and discuss Patient status and discharge. He verbalized understanding and thanked me for my assistance.
--- NOTE | 2017-10-26 15:57 | NUR ---
DR. MEDELLIN AND CHARGE NURSE NIURKA LAWTON
--- NOTE | 2017-10-26 15:57 | NUR ---
10/26/17 RD FOLLOW UP COMPLETED PLEASE REFER TO NUTRITION PROGRESS NOTE UNDER CARE ACTIVITY FOR ESTIMATED NUTRITION NEEDS. RD RECOMMENDATIONS: 1. RECOMMEND PUREE CARDIAC DIET TOLERATED 2. RD WILL F/U 3-5 DAYS; MODERATE RISK. ANTONIO GREGORIO RD
[2017-10-26 16:00] VITALS: BP 178/70
--- NOTE | 2017-10-26 16:04 | NUR ---
clinical review faxed to [facility] at [phone]
--- NOTE | 2017-10-26 16:10 | NUR ---
PT ATTEMPTED TO DRINK WATER AND NEEDED TO BE SUCTIONED 2 X D/T HAVING DIFFICULTY SWALLOWING. ADVISED PT TO DRINK SLOWLY AND KEEP HOB ELEVATED TO 60 DEGREES WHEN DRINKING/EATING.
[2017-10-26] MEDS ORDERED: oxyCODONE 10 MG TABER PO SCH (18:00)
[2017-10-26] MEDS: oxyCODONE 5 MG TAB PO SCH ×2 (18:19→23:00)
--- NOTE | 2017-10-26 18:30 | NUR ---
B/P 178/70. PLACED HOB AT [address] ENGLAND. NO ORDERS RECEIVED. WILL CONTINUE TO MONITOR.
--- NOTE | 2017-10-26 19:05 | NUR ---
GAVE BEDSIDE REPORT TO HAIRMASTERS MANAGER NURSE COLUMBA TO CONTINUE PLAN OF CARE.
--- NOTE | 2017-10-26 19:10 | NUR ---
RECEIVED PT AWAKE, AAOX4, FORGETFUL AT TIMES, BACK PAIN SLIGHTLY SUBSIDING, MEDICATED EARLIER FOR PAIN, WILL REASSESS AGAIN LATER, IVF INFUSING WELL VIA RT IJ CVP LINE, DRESSING DRY AND INTACT, CALVIN CATH IN PLACE DRAINING WELL, PLAN OF CARE DISCUSSED, SAFETY MEASURES IN PLACE, CALL LIGHT WITHIN REACH.
[2017-10-26] MEDS ORDERED: hydrALAZINE 10 MG TAB PO SCH (19:30)
[2017-10-26 20:00] VITALS: BP 169/64
--- NOTE | 2017-10-26 20:05 | NUR ---
VITAL SIGNS TAKEN, BP-169/74, HR-69, DENIES CHEST PAIN, NO SOB NOTED, APRESOLINE AND COREG MEDS GIVEN WITH EDUCATION PROVIDED, BLOOD SUGAR CHECKED WITH 129 RESULT, SNACK PROVIDED, REFUSED TO BE REPOSITIONED AT THIS TIME DUE TO BACK PAIN, RISK AND BENEFITS EXPLAINED, WILL TRY AGAIN LATER, ALL NEEDS ATTENDED.
[2017-10-26] MEDS: ZOLPIDEM 5 MG TAB PO PRN (21:26)
--- NOTE | 2017-10-26 21:30 | NUR ---
PT REPOSITIONED AND OFFLOAD PRESSURE AREAS, MEDICATED WITH AMBIEN FOR SLEEP, ALL NEEDS ATTENDED.
--- NOTE | 2017-10-26 22:40 | NUR ---
PT OCCASIONALLY HAVE MOIST COUGH, REQUESTING TO BE SUCTIONED, UNABLE TO SUCTION SECRETION WITH YANKAUER, ENCOURAGE TO EXPECTORATE, ABLE TO EXPECTORATE YELLOWISH BROWN THICK PHLEGM, HOB ON HIGH FOWLERS POSITION, MONITORED CLOSELY.
[2017-10-27] VITALS: BP 165/62
[2017-10-27] MEDS: HYDRAGUARD CREAM TP SCH ×2 (01:00→12:15)
--- NOTE | 2017-10-27 01:20 | NUR ---
PT SEEN SLEEPING, NO DISTRESS NOTED, CONTINUE TO MONITOR CLOSELY.
[2017-10-27 04:00] VITALS: BP 148/55
[2017-10-27] MEDS: NACL 0.9% 1,000 ML IV SCH (05:09)
--- NOTE | 2017-10-27 05:50 | NUR ---
NOTED STREAKS OF BLOOD ON URINE ON THE CALVIN CATHETER, PT DENIES BLADDER PAIN, DR WELLINGTON MADE AWARE, WILL ENDORSE TO INCOMING SHIFT, BLOOD SUGAR CHECKED WITH 88 RESULT, AM LABS DRAWN VIA RT IJ CVP LINE WITH GOOD BLOOD RETURN, MEDICATED PRN FOR PAIN WITH NORCO, MONITORED CLOSELY.
[2017-10-27] MEDS: HYDROcodone/APAP 7.5/325 MG 1 TAB PO PRN ×2 (05:52→10:08)
[2017-10-27] MEDS: PIPER/TAZO 3.375GM/D5W PREMIX 50 ML IV SCH ×2 (05:54→12:14)
[2017-10-27] MEDS: oxyCODONE 5 MG TAB PO SCH ×2 (06:00→12:15)
[2017-10-27] MEDS: BLOOD GLUCOSE MONITORING 1 DEV DEV FS SCH ×2 (06:34→12:22)
[2017-10-27 06:53] LABS: BASOPHILS % (AUTO) 0.2 % (0.0-2.0); EOSINOPHILS # (AUTO) 0.5 K/uL (0-0.4); EOSINOPHILS % (AUTO) 3.4 % (0.0-4.0); HEMATOCRIT 37.6 % (36-48); HEMOGLOBIN 11.9 g/dL (12.0-16.0); LYMPHOCYTES # (AUTO) 1.4 K/uL (2.5-16.5); LYMPHOCYTES % (AUTO) 9.4 % (20.5-51.1); MEAN CORPUSCULAR HEMOGLOBIN 28 pg (27-31); MEAN CORPUSCULAR HGB CONC 32 g/dL (33-37); MONOCYTES # (AUTO) 0.9 K/uL (0.8-1.0); MONOCYTES % (AUTO) 6.3 % (1.7-9.3); NEUTROPHILS # (AUTO) 11.7 K/uL (1.8-7.7); NEUTROPHILS % (AUTO) 80.7 % (42.2-75.2); PLATELET COUNT (AUTO) 271 K/uL (140-450); RED BLOOD CELL COUNT(AUTO) 4.27 MIL/uL (4.20-5.40); RED CELL DISTRIBUTION WIDTH 14.2 % (11.6-13.7); WHITE BLOOD COUNT (AUTO) 14.5 K/uL (4.8-10.8)
[2017-10-27 07:00] LABS: ANION GAP 8.6 (8-16); CARBON DIOXIDE 34.8 mmol/L (21-32); CHLORIDE 99 mmol/L (98-107); GLUCOSE 89 mg/dL (74-106); POTASSIUM 3.4 mmol/L (3.5-5.1); SODIUM SERUM 139 mmol/L (136-145); UREA NITROGEN, BLOOD 21 mg/dL (7-18)
[2017-10-27 07:17] LABS: MAGNESIUM 1.8 mg/dL (1.8-2.4); PHOSPHORUS 4.4 mg/dL (2.5-4.9)
--- NOTE | 2017-10-27 07:26 | NUR ---
PT AWAKE, NO DISTRESS NOTED, REPORT GIVEN TO RN MAURICE FOR CONTINUITY OF CARE.
--- NOTE | 2017-10-27 07:29 | NUR ---
BEDSIDE REPORT RECEIVED BY NURSE GENERAL DUTY NURSE, PT AWAKE ABLE TO MAKE NEEDS KNOWN, CALVIN IN PLACE DRAINING RED/VIRI URINE WITH SOME BLOOD CLOTS. PT C/O PAIN WILL MEDICATE ACCORDING TO GUILLE BAILON. ON 3 L NC. UPDATED BOARD WILL CONTINUE TO MONITOR.
[2017-10-27 08:00] VITALS: BP 153/52
[2017-10-27] MEDS: metFORMIN 500 MG TAB PO SCH ×2 (08:59→09:07)
[2017-10-27] MEDS ORDERED: POTASSIUM CHLORIDE 10 MEQ TABER PO SCH (09:00)
[2017-10-27] MEDS ORDERED: MAGNESIUM OXIDE 400 MG TAB PO SCH (09:00)
[2017-10-27] MEDS: PANTOPRAZOLE 40 MG INJ VIAL IVP SCH (09:04)
[2017-10-27] MEDS: hydrALAZINE 10 MG TAB PO SCH ×2 (09:05→12:29)
[2017-10-27] MEDS: LACTOBACILLUS RHAMNOSUS GG 1 EACH CAP PO SCH (09:05)
[2017-10-27] MEDS: LISINOPRIL 20 MG TAB PO SCH (09:05)
[2017-10-27] MEDS: ATORVASTATIN 80 MG TAB PO SCH (09:06)
[2017-10-27] MEDS: ASPIRIN 81 MG TAB.CHEW PO SCH (09:06)
[2017-10-27] MEDS: amLODIPine 5 MG TAB PO SCH (09:06)
[2017-10-27] MEDS: FUROSEMIDE 40 MG/5 ML ORAL SOL UDC PO SCH (09:08)
[2017-10-27] MEDS: CARVEDILOL 6.25 MG TAB PO SCH (09:08)
[2017-10-27] MEDS: ENOXAPARIN 30 MG/0.3 ML SYR SUBQ SCH (09:09)
--- NOTE | 2017-10-27 10:00 | NUR ---
PT C/O PAIN. REQUESTED OXYCODONE WILL MEDICATE ACCORDING TO GUILLE BAILON.
--- NOTE | 2017-10-27 11:19 | NUR ---
SPOKE WITH RADHA FROM [facility]. PATIENT HAS BEEN ACCEPTED AT [facility], ROOM [address] ENAMOR[address]O. DARLINE FOR [facility] [id number] . I CALLED RAMON AT [facility] AND THEY WOULD LIKE THE PATIENT AFTER 3P.M. I CALLED [facility] AND SET UP DISC PAD GRINDING MACHINE FEEDER AT 3:30P.M. [facility]. I CALLED MAURICE OCAMPO AND INFORMED HER . I ALSO INFORMED KARTHIK OCAMPOREAL ESTATE AGENT/BROKER NURSE.
--- NOTE | 2017-10-27 11:42 | NUR ---
FAXED CONCURRENT REVIEW TO [facility] INCLUDING DISCHARGE SUMMARY [phone] PHONE RADHA [phone]
[2017-10-27 12:00] VITALS: BP 111/58
--- NOTE | 2017-10-27 12:00 | NUR ---
PT C/O PAIN WILL MEDICATE ACCORDING TO DRS ORDER.
--- NOTE | 2017-10-27 12:29 | NUR ---
FREELANCE ART DIRECTOR note (dysphagia therapy) [phone]. Dysphagia therapy provided with RN (Summer) and CAN REPAIRER (Viktoria) both present in pt's room. Pt positioned upright in bed with CAN REPAIRER feeding pt. Pt's diet textures have not been changed to puree (per FREELANCE ART DIRECTOR's recommendations during yesterday's dysphagia therapy session). FREELANCE ART DIRECTOR d/w RN (Summer) who reported physician is aware, but has not ordered diet texture change at this time. Pt is to be transferred to SNF today at 15:30. FREELANCE ART DIRECTOR provided pt with education regarding purpose of FREELANCE ART DIRECTOR's visit and also provided pt with encouragement and supportive listening with fair positive result. Pt reported she is doing better than yesterday. Pt demonstrated improved tolerance for mechanical soft chopped textures with thin liquids vs yesterday's session, but pt continues to demonstrate fatigue with chewing efforts and required frequent rest breaks despite feeding assistance. Recommend: 1) pureed textures 2) thin liquids 3) aspiration precautions (including pt must be fully awake/alert/upright for any PO intakes, alternate small/slow bites and sips, stop giving PO if pt becomes less alert/SOB/coughing) 4) FREELANCE ART DIRECTOR will continue to f/u for dysphagia/diet tolerance if pt is not discharged to SNF today as planned. Otherwise, recommend SNF FREELANCE ART DIRECTOR to f/u for dysphagia/diet tolerance, as appropriate. PVE for d/w RN (Summer) during and following dysphagia therapy session.
--- NOTE | 2017-10-27 13:52 | NUR ---
Geography Teacher Notes: [facility] to discuss, confirm and gather additional information about Patient. I spoke to Rosario from Admissions department and discuss Patient's Hx. and Information. Per Rosario Patient has been a resident since 04/26/17, and is currently on a 7 days long term bed hold. Patient has no advance directives however; her healthcare decision makers are Patient's son's Ermias and [employer]. Adilson Ponce patient's Health care provider is Dr. Brody who comes and see Patient in the facility as needed or on a monthly basis. Per Rosario from admissions Patient has no issues with medications and has a walker only, No 02 in the facility. Per Rosario patient can return to their facility when she is ready and clear for discharge. I thanked Rosario for the information and ended the call. Addendum: 10/27/17 at 1441 by Josie Vallejo CM Entertainment Usher Notes: Wrong Patient Please disregard
--- NOTE | 2017-10-27 14:00 | NUR ---
PT REQUESTED TO BE CHANGED, JANE CARE PROVIDED, ORAL CARE PROVIDED, WILL CONTINUE TO MONITOR.
[2017-10-27 14:03] VITALS: BP 153/52
--- NOTE | 2017-10-27 15:15 | NUR ---
PT C/O NAUSEA WILL MEDICATE ACCORDING TO DRS ORDER.
--- NOTE | 2017-10-27 15:20 | NUR ---
FOUND PT ATTEMPTING TO CHOKE SELF WITH NC, STAYED WITH PT CALLED FOR HELP. PT STATED "I WANT TO , PLEASE HELP ME KILL MYSELF. I WILL PULL OUT IV AND MY CALVIN, I WILL GET A KNIFE IF I HAVE TO ". NOTIFIED. Addendum: 10/27/17 at 1532 by Abigail Weeks RN DISREGARD WRONG PT
--- NOTE | 2017-10-27 16:00 | NUR ---
DX CALVIN CATH, CATH INTACT, REMOVED WRIST BANDS, ALL TRANSFER PAPERWORK SIGNED AND IN CHART. PT LEFT VIA GURNEY TO [facility]. PT STABLE.
== END 2017-10-27 16:00 | DRG 871 ==
LOC: MED 15:24 → MIC 18:18 → MTU 10-25 18:38
PROVIDERS: ADMIT Family Medicine; ATTEND Family Medicine
PROC: 5A1945Z Respiratory Ventilation, 24-96 Consecutive Hours (ICD-10-PCS; principal; 2017-10-21)
PROC: 02HV33Z Insertion of Infusion Device into Superior Vena Cava, Percutaneous Approach (ICD-10-PCS; 2017-10-24)
PROC: B548ZZA Ultrasonography of Superior Vena Cava, Guidance (ICD-10-PCS; 2017-10-24)
DX: A41.9 Sepsis, unspecified organism (principal); I46.9 Cardiac arrest, cause unspecified; I21.A1 Myocardial infarction type 2; J96.01 Acute respiratory failure with hypoxia; N17.0 Acute kidney failure with tubular necrosis; J69.0 Pneumonitis due to inhalation of food and vomit; J96.02 Acute respiratory failure with hypercapnia; N39.0 Urinary tract infection, site not specified; G93.1 Anoxic brain damage, not elsewhere classified; J44.1 Chronic obstructive pulmonary disease with (acute) exacerbation; I67.4 Hypertensive encephalopathy; I47.2 Ventricular tachycardia; Z99.11 Dependence on respirator [ventilator] status; I10 Essential (primary) hypertension; Z95.5 Presence of coronary angioplasty implant and graft; M06.9 Rheumatoid arthritis, unspecified; I25.10 Atherosclerotic heart disease of native coronary artery without angina pectoris; Z90.710 Acquired absence of both cervix and uterus; E78.5 Hyperlipidemia, unspecified; E83.42 Hypomagnesemia; E87.6 Hypokalemia; E83.51 Hypocalcemia; E11.42 Type 2 diabetes mellitus with diabetic polyneuropathy; E11.65 Type 2 diabetes mellitus with hyperglycemia; E11.51 Type 2 diabetes mellitus with diabetic peripheral angiopathy without gangrene; R31.9 Hematuria, unspecified
CPT/HCPCS: 31500; 36415; 36600; 51702; 70450; 71045; 71250; 76705; 78582; 80048; 80053; 81001; 82009; 82140; 82150; 82272; 82550; 82553; 82803; 82948; 83036; 83605; 83690; 83735; 83874; 83880; 84100; 84436; 84439; 84443; 84484; 85025; 85610; 85730; 87040; 87081; 87086; 87186; 92610; 92700; 93005; 93925; 93970; 94003; 96374; 96375; 97110; 97116; 97140; 97530; 97799; 99291; C9113; J0282; J1100; J1170; J1642; J1644; J1650; J1815; J1885; J2060; J2270; J2405; J2543; J2704; J2920; J3475; J3480; J3490; J7030; J7060; Q0092